=== PATIENT | male | born 1955 | race Caucasian/White ===

== ENCOUNTER 2017-11-01 13:18 | Inpatient (IN) | payer MEDICARE ==
[~2017-11-01] VITALS: Ht 188 cm; Wt 110.0 kg
[~2017-11-01 13:18] MED LIST: 3-IN3MIS; AMLO10 PO; CLOP75 PO; HCTZ25 PO; LISI20 PO; METO50TA PO; PRAV80 PO; PROT40TA PO; RISP50P IM; TAMS.4 PO; WHEEMIS3 XX; [UNRECOGNIZED DRUG - CODE]; [UNRECOGNIZED DRUG - CODE] TOP
[2017-11-01 13:30] VITALS: BP 185/104; PULSE 113; RESP 18; TEMP 99.7; O2SAT 96
[2017-11-01] MEDS ORDERED: METOPROLOL TARTRATE 100 MG TAB PO ONE (13:45)
[2017-11-01] MEDS ORDERED: HYDROCHLOROTHIAZIDE 25 MG TAB PO ONE (13:45)
[2017-11-01 13:47] LABS: AUTOMATED NEUTROPHIL # 3.6 TH/MM3 (1.8-7.7); BASOPHIL # 0.1 TH/MM3 (0-0.2); BASOPHIL % 1.2 % (0.0-2.0); EOSINOPHIL # 0.1 TH/MM3 (0-0.4); EOSINOPHIL % 1.2 % (0.0-4.0); HEMATOCRIT 40.7 % (39.0-51.0); HEMOGLOBIN 13.7 GM/DL (13.0-17.0); LYMPH % 23.9 % (9.0-44.0); LYMPHOCYTE # 1.4 TH/MM3 (1.0-4.8); MEAN CELL VOLUME 81.4 FL (80.0-100.0); MEAN CORPUSCULAR HEMOGLOBIN 27.4 PG (27.0-34.0); MEAN CORPUSCULAR HGB CONC 33.6 % (32.0-36.0); MEAN PLATELET VOLUME 8.3 FL (7.0-11.0); MONO % 10.6 % (0.0-8.0); MONOCYTE # 0.6 TH/MM3 (0-0.9); NEUT % 63.1 % (16.0-70.0); PLATELET COUNT 243 TH/MM3 (150-450); WHITE BLOOD COUNT 5.7 TH/MM3 (4.0-11.0)
--- NOTE | 2017-11-01 13:53 | PD ---
HPI Chief Complaint: Psychiatric Symptoms Time Seen by Provider: 13:33 Travel History International Travel<30 days: No Contact w/Intl Traveler<30days: No Traveled to known affect area: No History of Present Illness HPI 61-year-old male that presents to the ED for evaluation of Pritchett act after apparently patient has been noncompliant with his medications. Patient has a history of CVA and apparently hypertension. He takes 3 different blood pressure medications and per Pritchett act he has been refusing his medications. He also has a history of schizoaffective disorder. He denies any suicidal homicidal ideation. He denies any chest pain or shortness of breath. No headache. Patient is somewhat hard to get a history as he does appear to be possibly slightly psychotic. Patient tells me that he was not given his blood pressure medications and that is why he did not take them. He apparently resides in an [facility]. He denies any medical problems at this time. He denies any cuts. Allergies to penicillin. Has been here before for psychiatric illness but not in any recent time. Patient was Pritchett acted because of his history of CVA and noncompliance with his blood pressure medications. When asked if we give the patient his medications will he take them he states that he will. Symptoms appear to be ongoing for about a month per Pritchett act. PFSH Past Medical History Arthritis: Yes Asthma: Yes Autoimmune Disease: No Anxiety: Yes Depression: No Heart Rhythm Problems: No Cancer: No Cardiovascular Problems: Yes High Cholesterol: Yes Chemotherapy: No Chest Pain: No Congestive Heart Failure: No COPD: Yes (hx copd) Cerebrovascular Accident: Yes (Pt states he had a stroke 2 months ago but didn' t come to the hospital.) Diabetes: Yes (new onset) Patient Takes Glucophage: No Endocrine: No GERD: No Genitourinary: No Hiatal Hernia: No Hypertension: Yes Immune Disorder: No Kidney Stones: No Musculoskeletal: Yes Neurologic: Yes (cva left sided weakness) Psychiatric: Yes (schizophrenic) Reproductive: No Respiratory: Yes Migraines: No Radiation Therapy: No Renal Failure: No Seizures: Yes ([id number]) Sickle Cell Disease: No Sleep Apnea: No Thyroid Disease: No Ulcer: No ?: Not Past Surgical History Abdominal Surgery: No AICD: No Arteriovenous Shunt: No Cardiac Surgery: Yes Ear Surgery: No Endocrine Surgery: No Eye Surgery: Yes (cataracts in 1980s / bilateral eyes) Genitourinary Surgery: No Gynecologic Surgery: No Insulin Pump: No Joint Replacement: No Neurologic Surgery: Yes (right cva) Oral Surgery: Yes (wisdom teeth removed ) Pacemaker: No Thoracic Surgery: No Other Surgery: Yes (neck surgery) Social History Alcohol Use: No Tobacco Use: No Substance Use: No Allergies-Medications (Allergen,Severity, Reaction): Coded Allergies: penicillin G (Unverified Allergy, Severe, 02/21/17) Reported Meds & Prescriptions Reported Meds & Active Scripts Active Review of Systems ROS Limitations: Poor Historian Except as stated in HPI: all other systems reviewed are Neg Physical Exam Exam Limitations: Poor Historian Narrative GENERAL: SKIN: Warm and dry. HEAD: Atraumatic. Normocephalic. EYES: Pupils equal and round. No scleral icterus. No injection or drainage. ENT: No nasal bleeding or discharge. Mucous membranes pink and moist. Tongue is midline. No uvula deviation. NECK: Trachea midline. No JVD. CARDIOVASCULAR: Regular rate and rhythm. No murmurs, S3, S4. RESPIRATORY: No accessory muscle use. Clear to auscultation. Breath sounds equal bilaterally. GASTROINTESTINAL: Abdomen soft, non-tender, nondistended. Hepatic and splenic margins not palpable. MUSCULOSKELETAL: Extremities without clubbing, cyanosis, or edema. No obvious deformities. Full range of motion of the upper and lower extremities bilaterally. 2+ pulses bilaterally. NEUROLOGICAL: Awake and alert. No obvious cranial nerve deficits. Motor grossly within normal limits. Five out of 5 muscle strength in the arms and legs. Normal speech. PSYCHIATRIC: Appropriate mood and affect; insight and judgment normal. Data Data Last Documented VS Vital Signs Date Time Temp Pulse Resp B/P (MAP) Pulse Ox O2 Delivery O2 Flow Rate FiO2 11/01/17 13:30 99.7 113 18 185/104 (131) 96 Room Air Orders Orders Complete Blood Count With Diff (11/01/17 13:33) Comprehensive Metabolic Panel (11/01/17 13:33) Thyroid Stimulating Hormone (11/01/17 13:33) Psych Screen (11/01/17 13:33) Drug Screen, Random Urine (11/01/17 13:33) Alcohol (Ethanol) (11/01/17 13:33) Metoprolol Tartrate (Lopressor) (11/01/17 13:45) Hydrochlorothiazide (Hydrodiuril) (11/01/17 13:45) Labs Laboratory Tests Test 11/01/17 13:30 White Blood Count 5.7 TH/MM3 Red Blood Count 5.00 MIL/MM3 Hemoglobin 13.7 GM/DL Hematocrit 40.7 % Mean Corpuscular Volume 81.4 FL Mean Corpuscular Hemoglobin 27.4 PG Mean Corpuscular Hemoglobin Concent 33.6 % Red Cell Distribution Width 14.0 % Platelet Count 243 TH/MM3 Mean Platelet Volume 8.3 FL Neutrophils (%) (Auto) 63.1 % Lymphocytes (%) (Auto) 23.9 % Monocytes (%) (Auto) 10.6 % Eosinophils (%) (Auto) 1.2 % Basophils (%) (Auto) 1.2 % Neutrophils # (Auto) 3.6 TH/MM3 Lymphocytes # (Auto) 1.4 TH/MM3 Monocytes # (Auto) 0.6 TH/MM3 Eosinophils # (Auto) 0.1 TH/MM3 Basophils # (Auto) 0.1 TH/MM3 CBC Comment DIFF FINAL Differential Comment Blood Urea Nitrogen 10 MG/DL Creatinine 0.98 MG/DL Random Glucose 100 MG/DL Albumin 3.3 GM/DL Calcium Level 9.0 MG/DL Aspartate Amino Transf (AST/SGOT) 24 U/L Sodium Level 137 MEQ/L Potassium Level 3.5 MEQ/L Chloride Level 103 MEQ/L Carbon Dioxide Level 26.7 MEQ/L Anion Gap 7 MEQ/L Estimat Glomerular Filtration Rate 78 ML/MIN Ethyl Alcohol Level LESS THAN 3 MG/DL MDM Medical Decision Making Medical Screen Exam Complete: Yes Emergency Medical Condition: Yes Medical Record Reviewed: Yes Interpretation(s) CBC & BMP Diagram 11/01/17 13:30 Albumin 3.3 L, Calcium Level 9.0, Aspartate Amino Transf (AST/SGOT) 24 Differential Diagnosis Depression versus suicidal ideation versus anxiety versus adjustment disorder versus mood disorder versus bipolar disorder versus schizophrenia versus paranoid disorder versus psychosis versus substance abuse versus alcohol abuse versus alcohol induced psychosis versus homicidality addition versus cutting versus personality disorder versus hypertension Narrative Course 61-year-old male that presents to the ED for evaluation of Pritchett act. Patient was properly examined and was found to have signs and symptoms consistent with psychiatric illness been a significant medical distress. Labs were drawn. Patient was found to be slightly hypertensive here. Patient did state that he will take his medications given here. I given him his metoprolol and HCTZ. Patient will be medically clear. Okay to be seen by psych. Mental health screening was discussed with the patient. Diagnosis Primary Impression: Schizoaffective disorder Qualified Codes: F25.9 - Schizoaffective disorder, unspecified Niall Mancia Nov 01, 2017 13:53
[2017-11-01 14:18] LABS: ALBUMIN 3.3 GM/DL (3.4-5.0); AST (GOT) 24 U/L (15-37); BICARBONATE 26.7 MEQ/L (21.0-32.0); BLOOD UREA NITROGEN 10 MG/DL (7-18); CHLORIDE 103 MEQ/L (98-107); CREATININE 0.98 MG/DL (0.60-1.30); GLOMERULAR FILTRATION RATE 78 ML/MIN (>89); GLUCOSE,RANDOM 100 MG/DL (74-106); SODIUM (NA) 137 MEQ/L (136-145)
[2017-11-01 14:29] LABS: ALKALINE PHOSPHATASE 83 U/L (45-117); ALT (GPT) 24 U/L (12-78); TOTAL BILIRUBIN ADULT 0.4 MG/DL (0.2-1.0); TOTAL PROTEIN 8.3 GM/DL (6.4-8.2)
[2017-11-01 15:32] VITALS: BP 191/109; PULSE 72; RESP 18; TEMP 98.7; O2SAT 97
[2017-11-01 18:00] VITALS: BP 190/90; PULSE 69; RESP 18; TEMP 98.5; O2SAT 98
[2017-11-02 02:13] VITALS: BP 203/98; PULSE 75; RESP 18; TEMP 98.7; O2SAT 97
[2017-11-02 04:26] VITALS: BP 168/104
[2017-11-02 05:41] VITALS: BP 166/92; PULSE 91; RESP 18; TEMP 98.2; O2SAT 97
[2017-11-02 14:05] VITALS: BP 193/101; PULSE 87; RESP 22; TEMP 98.2; O2SAT 95
[2017-11-02 18:28] VITALS: BP 186/117; PULSE 87; RESP 22; TEMP 98.4; O2SAT 97
[2017-11-02] MEDS ORDERED: METOPROLOL TARTRATE 100 MG TAB PO ONE (18:30)
[2017-11-02] MEDS ORDERED: LISINOPRIL 20 MG TAB PO ONE (18:30)
[2017-11-02 21:09] VITALS: BP_SYST 175; BP_SYST 72; BP_DIAS 20; BP_DIAS 99; PULSE 72; RESP 20
[2017-11-03] VITALS (8 sets, daily range): BP systolic 155–170; BP diastolic 78–103; PULSE 66–93; RESP 17–18; TEMP 97.4–98.7; O2SAT 95–98
[2017-11-03] MEDS ORDERED: METOPROLOL TARTRATE 100 MG TAB PO ONE (11:30)
[2017-11-03] MEDS ORDERED: LISINOPRIL 20 MG TAB PO ONE (11:30)
--- NOTE | 2017-11-03 12:17 | PD ---
History of Present Illness Chief Complaint: Psychiatric Symptoms Time Seen by Provider: 11:45 Travel History International Travel<30 Days: No Contact w/Intl Traveler<30days: No Known affected area: No Legal Status Legal Status: Yarely Act Pritchett Act Signed By: Physician Dr Jose Pritchett Act Comment: Patient Yarely Acted by physician at [facility]. History of Present Illness: History of Present Illness HPI 61-year-old, -Congolese, single male, resident of [facility], with history of hypertension, CVA, schizoaffective disorder, bipolar type who presents to the ED for evaluation of Pritchett act initiated by Dr. Decker after apparently patient has been noncompliant with all prescribed medications for the past month. When interviewed the patient states that he has not taken the medications " because they don't give them to me" but that he will take him here while he is in the hospital. EMR is reviewed. Patient was last admitted to [facility] in 2005 and was given a diagnosis of schizoaffective disorder, mixed personality disorder. Current toxicology is negative for any substances of abuse. Patient is seen. He is awake, alert, oriented to person, place, situation, partial to time. He is maintaining basic hygiene. He is cooperative with evaluation. He is extremely difficult to understand as he mumbles, fast rate, and tends to repeat himself. Some echolalia is noted. He does admit to hearing voices that have been telling him not to take his medicine as well as" talking shit". Decreased attention is noted. Patient also reports having rapid thoughts. He denies current suicidal or homicidal ideation, intent or plan. He is judgment is poor as evidenced by refusing to take medications for his hypertension. PFSH Past Medical History Arthritis: Yes Asthma: Yes Autoimmune Disease: No Anxiety: Yes Depression: No Heart Rhythm Problems: No Cancer: No Cardiovascular Problems: Yes High Cholesterol: Yes Chemotherapy: No Chest Pain: No Congestive Heart Failure: No COPD: Yes (hx copd) Cerebrovascular Accident: Yes (Pt states he had a stroke 2 months ago but didn' t come to the hospital.) Diabetes: Yes (new onset) Patient Takes Glucophage: No Endocrine: No GERD: No Genitourinary: No Hiatal Hernia: No Hypertension: Yes Immune Disorder: No Kidney Stones: No Musculoskeletal: Yes Neurologic: Yes (cva left sided weakness) Psychiatric: Yes (schizophrenic) Reproductive: No Respiratory: Yes Migraines: No Radiation Therapy: No Renal Failure: No Seizures: Yes ([id number]) Sickle Cell Disease: No Sleep Apnea: No Thyroid Disease: No Ulcer: No ?: Not Past Surgical History Abdominal Surgery: No AICD: No Arteriovenous Shunt: No Cardiac Surgery: Yes Ear Surgery: No Endocrine Surgery: No Eye Surgery: Yes (cataracts in 1980s / bilateral eyes) Genitourinary Surgery: No Gynecologic Surgery: No Insulin Pump: No Joint Replacement: No Neurologic Surgery: Yes (right cva) Oral Surgery: Yes (wisdom teeth removed ) Pacemaker: No Thoracic Surgery: No Other Surgery: Yes (neck surgery) Psychiatric History Psychiatric History Hx Psychiatric Treatment: Difficult to obtain from patient but records indicate he has been hospitalized here at [facility] in 1997.. His last admission was in 2005 also in context of medication noncompliance. History of Inpatient Treatment: Yes Guns or firearms in home: No Social History Born in [place] and raised in [place]. Has 3 brothers and 4 sisters. Completed a GED. Patient is on disability. As per records he was at one time. He lives at an [facility]. Hx Alcohol Use: No Hx Tobacco Use: No Hx Substance Use: No Family Psychiatric History Unknown Allergies-Medications (Allergen,Severity, Reaction): Coded Allergies: penicillin G (Unverified Allergy, Severe, 02/21/17) Reported Meds & Prescriptions Reported Meds & Active Scripts Active Review of Systems ROS Limitations: Poor Historian Mental Status Examination Appearance: Appropriate Consciousness: Alert Orientation: Person, Place, Date/Time (Partial), Situation Motor Activity: Normal gait Speech: Rapid, Other (Mumbles, echolalia) Language: Perseveration, Echolalia Fund of Knowledge: Inadequate Attention and Concentration: Inadequate Memory: Impaired Mood: Appropriate Affect: Appropriate Thought Process & Associations: Disorganized, Other Thought Content: Hallucinations Hallucination Type: Auditory Delusion Type: None Suicidal Ideation: No Suicidal Plan: No Suicidal Intention: No Homicidal Ideation: No Homicidal Plan: No Homicidal Intention: No Insight: Poor Judgment: Poor MDM Medical Decision Making Medical Record Reviewed: Yes Assessment/Plan 61-year-old, -Congolese, single male, resident of [facility], with history of hypertension, CVA, schizoaffective disorder, bipolar type who presents to the ED for evaluation of Pritchett act initiated by Dr. Decker after apparently patient has been noncompliant with all prescribed medications for the past month. When interviewed the patient states that he has not taken the medications " because they don't give them to me" but that he will take him here while he is in the hospital. Patient admits to auditory hallucinations that tell him to not take his medication. Patient at risk for complications from not following up with his prescribed antihypertensive. Patient will be evaluated by on-call psychiatrist Dr. Guillaume for possible admission to inpatient unit for further evaluation, stabilization, and for medication adjustment. Orders Orders Diet Regular Basic (11/02/17 Dinner) Metoprolol Tartrate (Lopressor) (11/02/17 18:30) Amlodipine (Norvasc) (11/02/17 18:30) Lisinopril (Prinivil) (11/02/17 18:30) Diet Heart Healthy (11/03/17 Breakfast) Diet Diabetic (11/03/17 Lunch) Amlodipine (Norvasc) (11/03/17 11:30) Lisinopril (Prinivil) (11/03/17 11:30) Metoprolol Tartrate (Lopressor) (11/03/17 11:30) Results Vital Signs Date Time Temp Pulse Resp B/P (MAP) Pulse Ox O2 Delivery O2 Flow Rate FiO2 11/03/17 11:23 170/85 (113) 11/03/17 10:00 97.8 93 17 168/103 (124) 95 Room Air 11/03/17 05:37 69 18 158/85 (109) Room Air 11/03/17 02:33 72 18 155/78 (103) Room Air 11/02/17 21:09 72 20 175/99 (124) Room Air 11/02/17 18:28 98.4 87 22 186/117 (140) 97 Room Air 11/02/17 14:05 98.2 87 22 193/101 (131) 95 Room Air Laboratory Tests Test 11/03/17 03:20 Urine Opiates Screen NEG Urine Barbiturates Screen NEG Urine Amphetamines Screen NEG Urine Benzodiazepines Screen NEG Urine Cocaine Screen NEG Urine Cannabinoids Screen NEG Diagnosis Primary Impression: Schizoaffective disorder Problem Qualifiers Primary Impression: Schizoaffective disorder Qualified Codes: F25.9 - Schizoaffective disorder, unspecified Paula Maravilla [facility] Nov 03, 2017 12:17
[2017-11-03] MEDS ORDERED: ACETAMINOPHEN 325 MG TAB PO PRN (15:15)
[2017-11-03] MEDS ORDERED: MAGNESIUM HYDROXIDE SUSP 30 ML CUP PO PRN (15:15)
[2017-11-03] MEDS: NICOTINE 21 MG/24 HR PATCH T-DERMAL SCH (15:15)
[2017-11-03] MEDS ORDERED: LORazepam 0.5 MG TAB PO PRN (15:15)
[2017-11-03] MEDS ORDERED: ALUMINUM/MAGNESIUM/SIMETH 30 ML CUP PO PRN (15:15)
[2017-11-03] MEDS ORDERED: LORazepam 2 MG/ML VIAL IM PRN ×2 (15:15)
[2017-11-03] MEDS ORDERED: LORazepam 1 MG TAB PO PRN (15:15)
--- NOTE | 2017-11-03 15:21 | HHI.HP ---
Provisional Diagnosis Admission Date [place]. Schizoaffective disorder, bipolar type Certification of Person's Competence To Provide Express and Informed Consent I have personally examined Manuelito Shaw , a person being served at [facility] on, Nov 03, 2017 15:15. Express and informed consent means consent voluntarily given in writing, by a competent person, after sufficient explanation and disclosure of the subject matter involved to enable the person to make a knowing and willful decision without any element of force, fraud, deceit, duress, or other form of constraint or coercion. This person is 18 years of age or older, is not now known to be incompetent to consent to treatment with a guardian advocate, and does not have a health care surrogate or proxy currently making medical treatment decisions. I have found this person to be one of the following: [] Competent to provide express and informed consent, as defined above, for voluntary admission to this facility and is competent to provide express and informed consent for treatment. He/she has the consistent capacity to make well reasoned, willful, and knowing decisions concerning his or her medical or mental health treatment. The person fully and consistently understands the purpose of the admission for examination/placement and is fully capable of personally exercising all rights assured [place] [x] Incompetent to provide express and informed consent to voluntary admission, and this is incompetent to provide express and informed consent to treatment. The person must be transferred to involuntary status and a petition for a guardian advocate filed with the Circuit Court. [] Refusing to provide express and informed consent to voluntary admission but is competent to provide express and informed consent for treatment. The person must be discharged or transferred to involuntary status. Form shall be completed within 24 hours of a person's arrival at the receiving facility and filed in the clinical record of each person: 1. Admitted on a voluntary basis 2. Permitted to provide express and informed consent to his/her own treatment 3. Allowed to transfer from involuntary to voluntary status 4. Prior to permitting a person to consent to his or her own treatment after having been previously found incompetent to consent to treatment. History of Present Illness Capacity: Lacks Capacity HPI The patient is 61-year-old, -Niuean, single male, resident of [facility], with history of hypertension, CVA, residual neurological symptoms, expressive aphasia, psychiatric history of schizoaffective disorder, bipolar type, multiple psychiatric hospitalizations, outpatient care by visiting psychiatrist, he is on Risperdal 2 mg twice daily, who presents to the ED for evaluation of Pritchett act initiated by Dr. Decker after apparently patient has been noncompliant with all prescribed medications for the past month. When interviewed the patient states that he has not taken the medications " because they don't give them to me" but that he will take him here while he is in the hospital.EMR is reviewed. Patient was last admitted to [facility] in 2005 and was given a diagnosis of schizoaffective disorder, mixed personality disorder. Current toxicology is negative for any substances of abuse.Patient is seen. He is awake, alert, oriented to person, place, situation , partial to time. He is maintaining basic hygiene. He is cooperative with evaluation. He is extremely difficult to understand due to aphasia, fast rate, and tends to repeat himself. Some echolalia is noted. He does admit to hearing voices that have been telling him not to take his medicine as well as" talking shit". Decreased attention is noted. Patient also reports having rapid thoughts. He denies current suicidal or homicidal ideation, intent or plan. He is judgment is poor as evidenced by refusing to take medications for his hypertension. Review of Systems Constitutional: DENIES: Diaphoretic episodes, Fatigue, Fever, Weight gain, Weight loss, Chills, Dizziness, Change in appetite, Night Sweats Endocrine: DENIES: Heat/cold intolerance, Polydipsia, Polyuria, Polyphagia Eyes: DENIES: Blurred vision, Diplopia, Eye inflammation, Eye pain, Vision loss , Photosensitivity, Double Vision Ears, nose, mouth, throat: DENIES: Tinnitus, Hearing loss, Vertigo, Nasal discharge, Oral lesions, Throat pain, Hoarseness, Ear Pain, Running Nose, Epistaxis, Sinus Pain, Toothache, Odynophagia Respiratory: DENIES: Apneas, Cough, Snoring, Wheezing, Hemoptysis, Sputum production, Shortness of breath Cardiovascular: DENIES: Chest pain, Palpitations, Syncope, Dyspnea on Exertion , PND, Lower Extremity Edema, Orthopnea, Claudication Gastrointestinal: DENIES: Abdominal pain, Black stools, Bloody stools, Constipation, Diarrhea, Nausea, Vomiting, Difficulty Swallowing, Anorexia Genitourinary: DENIES: Sexual dysfunction, Urinary frequency, Urinary incontinence, Urgency, Hematuria, Dysuria, Nocturia, Penile Discharge, Testicular Pain, Testicular Swelling Musculoskeletal: DENIES: Joint pain, Muscle aches, Stiffness, Joint Swelling, Back pain, Neck pain Integumentary: DENIES: Abnormal pigmentation, Nail changes, Pruritus, Rash Hematologic/lymphatic: DENIES: Bruising, Lymphadenopathy Immunologic/allergic: DENIES: Eczema, Urticaria Neurologic: DENIES: Abnormal gait, Headache, Localized weakness, Paresthesias, Seizures, Speech Problems, Tremor, Poor Balance Psychiatric: COMPLAINS OF: Hallucinations, Delusions, DENIES: Anxiety, Confusion, Mood changes, Depression, Agitation, Suicidal Ideation, Homicidal Ideation Past Psych History Violence risk - self (6 mos) Increased Past Family Social History Coded Allergies: penicillin G (Unverified Allergy, Severe, 02/21/17) Discontinued Scripts Lisinopril 20 mg (Prinivil 20 mg) 20 Mg Tab, 40 MG PO DAILY for blood pressure, #60 TAB 1 Refill Prov:[facility] 04/28/15 Pantoprazole Sodium (Protonix) 40 Mg Tabdr, 40 MG PO DAILY for GI ppx, #30 TAB 1 Refill Prov:[facility] 04/28/15 Risperidone (Risperdal Consta) 50 Mg/2 Ml Inj, 50 MG IM Q14D for schizoaffective , #2 INJECTION 1 Refill Prov:[facility]ertic[facility] 04/28/15 Tamsulosin HCl (Tamsulosin HCl) 0.4 Mg Cap, 0.4 MG PO DAILY for urinary retention, #30 CAP 1 Refill Prov:[facility] 04/28/15 Pravastatin Sod (Pravastatin Sodium) 80 Mg Tab, 80 MG PO HS for hyperlipidemia, #30 TAB 1 Refill Prov:[facility] 04/28/15 Hydrodiuril (Hydrodiuril) 25 Mg Tab, 25 MG PO DAILY for blood pressure, #30 TAB 1 Refill Prov:[facility] 04/28/15 Aquaphor (Aquaphor) 50 Applic/50 Gm Oint, 1 APPLIC TOP Q12HR for skin lesions, # 1 TUBE 1 Refill Prov:[facility] 04/28/15 Amlodipine Besylate (Norvasc) 10 Mg Tab, 10 MG PO DAILY for blood pressure, #30 TAB 1 Refill Prov:[facility] 04/28/15 Clopidogrel Bisulfate (Plavix) 75 Mg Tab, 75 MG PO DAILY for anticoagulation, # 30 TAB 1 Refill Prov:Grobstick,[facility] 04/28/15 Metoprolol Tartrate 50 mg (Metoprolol Tartrate 50 mg) 50 Mg Tab, 100 MG PO DAILY for blood pressure., #60 TAB 1 Refill Prov:Grobstick,[facility] 04/28/15 Misc. Devices (Wheelchair Cushion) Cushion Mis, EA, #1 Prov:Grobstick,[facility] 04/27/15 Misc. Devices (3-in-1 Commode) 1 Mis Mis, EA .XX, #1 0 Refills Prov:Grobstick,[facility] 04/27/15 Misc. Devices (Wheelchair) Mis, 1 EA XX, #1 Prov:[facility]robstick,[facility] 04/27/15 Current Medications Medications (Trade) Dose Ordered Sig/Mirtha Route Start Time Stop Time Status Last Admin (risperDAL) 1 mg Q12HR PO 11/03/17 21:00 UNV Family Psych History No family psychiatric history Social History Patient was born and raised in [facility], he lives in [facility], poor family and social support, unemployed, single, supported by [facility] Patient's Strengths (min. 2) Domiciled in a structured environment Physical Exam Vital Signs Vital Signs Date Time Temp Pulse Resp B/P (MAP) Pulse Ox O2 Delivery O2 Flow Rate FiO2 11/03/17 14:48 98.7 66 18 98 Room Air 165/90 (115) Lab Results Test 11/03/17 03:20 Urine Opiates Screen NEG Urine Barbiturates Screen NEG Urine Amphetamines Screen NEG Urine Benzodiazepines Screen NEG Urine Cocaine Screen NEG Urine Cannabinoids Screen NEG Mental Status Examination Appearance: Appropriate Consciousness: Alert Orientation: Person, Place, Date/Time (Partial), Situation Motor Activity: Normal gait Speech: Rapid, Other (Mumbles, echolalia) Language: Perseveration, Echolalia Fund of Knowledge: Inadequate Attention and Concentration: Inadequate Memory: Impaired Mood: Appropriate Affect: Appropriate Thought Process & Associations: Disorganized, Other Thought Content: Hallucinations Hallucination Type: Auditory Delusion Type: None Suicidal Ideation: No Suicidal Plan: No Suicidal Intention: No Homicidal Ideation: No Homicidal Plan: No Homicidal Intention: No Insight: Poor Judgment: Poor Assessment & Plan Problem List: (1) Schizoaffective disorder ICD Codes: F25.9 - Schizoaffective disorder, unspecified Status: Chronic Assessment & Plan: Patient seems to be decompensated of his schizoaffective disorder at this moment. Reports having commanding type auditory hallucinations , not taking his medications, he is in an elevated risk of danger to self and others. Will be admitted in psychiatry to restart his psychotropics. Start Risperdal 1 mg twice daily. 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 Will consult psychiatry for second opinion. Assessment & Plan Estimated LOS: days Problem Qualifiers (1) Schizoaffective disorder: Qualified Codes: F25.9 - Schizoaffective disorder, unspecified Eduin Martinez MD Nov 03, 2017 15:21
--- NOTE | 2017-11-03 18:27 | PD.PSY.CON ---
Provisional Diagnosis Admission Date Nov 03, 2017 at 15:15 Hollis I. 1. Schizoaffective disorder, unspecified type Hollis II. Deferred History of Present Illness Service Psychiatry Consult Requested By Dr. Martinez Reason for Consult Second opinion for involuntary psychiatric hospitalization Primary Care Physician No Primary Care Physician HPI From Dr. Martinez's H&P: The patient is 61-year-old, -[place], single male, resident of [facility], with history of hypertension, CVA, residual neurological symptoms, expressive aphasia, psychiatric history of schizoaffective disorder, bipolar type, multiple psychiatric hospitalizations, outpatient care by visiting psychiatrist, he is on Risperdal 2 mg twice daily, who presents to the ED for evaluation of Pritchett act initiated by Dr. Decker after apparently patient has been noncompliant with all prescribed medications for the past month. When interviewed the patient states that he has not taken the medications " because they don't give them to me" but that he will take him here while he is in the hospital.EMR is reviewed. Patient was last admitted to [facility] in 2005 and was given a diagnosis of schizoaffective disorder, mixed personality disorder. Current toxicology is negative for any substances of abuse.Patient is seen. He is awake, alert, oriented to person, place, situation , partial to time. He is maintaining basic hygiene. He is cooperative with evaluation. He is extremely difficult to understand due to aphasia, fast rate, and tends to repeat himself. Some echolalia is noted. He does admit to hearing voices that have been telling him not to take his medicine as well as" talking shit". Decreased attention is noted. Patient also reports having rapid thoughts. He denies current suicidal or homicidal ideation, intent or plan. He is judgment is poor as evidenced by refusing to take medications for his hypertension. On my examination 11/03: Patient seen and examined. Chart reviewed. Case discussed with nursing staff. Patient tells me that he has not been taking his blood pressure medications because "they have not given them to me." Possibly some paranoia. Denies SI or HI. Denies AVH. No mood symptoms. Thought process tangential. Remainder of the psychiatric ROS is negative. No acute physical complaints. Past psychiatric history: Patient denies a history of psychiatric diagnosis. He denies a history of inpatient or outpatient psychiatric treatment. Family history: Patient denies any family history of mental illness. Chemical dependency history: Patient denies any abuse of drugs or alcohol. Social history: Patient has been residing at his facility for 3 or 4 months. Review of Systems ROS Limitations: Psychotic, Poor Historian Except as stated in HPI: all other systems reviewed are Neg Past Family Social History Coded Allergies: penicillin G (Unverified Allergy, Severe, 02/21/17) Past Medical History See electronic medical record Discontinued Scripts Lisinopril 20 mg (Prinivil 20 mg) 20 Mg Tab, 40 MG PO DAILY for blood pressure, #60 TAB 1 Refill Prov:Marcia DouglassP 04/28/15 Pantoprazole Sodium (Protonix) 40 Mg Tabdr, 40 MG PO DAILY for GI ppx, #30 TAB 1 Refill Prov:NazticMarcia grijalvaP 04/28/15 Risperidone (Risperdal Consta) 50 Mg/2 Ml Inj, 50 MG IM Q14D for schizoaffective , #2 INJECTION 1 Refill Prov:Marcia DouglassP 04/28/15 Tamsulosin HCl (Tamsulosin HCl) 0.4 Mg Cap, 0.4 MG PO DAILY for urinary retention, #30 CAP 1 Refill Prov:Marcia DouglassP 04/28/15 Pravastatin Sod (Pravastatin Sodium) 80 Mg Tab, 80 MG PO HS for hyperlipidemia, #30 TAB 1 Refill Prov:NazticMarcia grijalvaP 04/28/15 Hydrodiuril (Hydrodiuril) 25 Mg Tab, 25 MG PO DAILY for blood pressure, #30 TAB 1 Refill Prov:Marcia DouglassP 04/28/15 Aquaphor (Aquaphor) 50 Applic/50 Gm Oint, 1 APPLIC TOP Q12HR for skin lesions, # 1 TUBE 1 Refill Prov:Marcia DouglassP 04/28/ Amlodipine Besylate (Norvasc) 10 Mg Tab, 10 MG PO DAILY for blood pressure, #30 TAB 1 Refill Prov:GrosawyerticMarcia grijalva MECHANIC 04/28/15 Clopidogrel Bisulfate (Plavix) 75 Mg Tab, 75 MG PO DAILY for anticoagulation, # 30 TAB 1 Refill Prov:NazticMarcia grijalva MECHANIC 04/28/15 Metoprolol Tartrate 50 mg (Metoprolol Tartrate 50 mg) 50 Mg Tab, 100 MG PO DAILY for blood pressure., #60 TAB 1 Refill Prov:GrobstickMarcia MECHANIC 04/28/15 Misc. Devices (Wheelchair Cushion) Cushion Mis, EA, #1 Prov:GrobstickMarcia MECHANIC 04/27/15 Misc. Devices (3-in-1 Commode) 1 Mis Mis, EA .XX, #1 0 Refills Prov:GrobstickMarcia MECHANIC 04/27/15 Misc. Devices (Wheelchair) Mis, 1 EA XX, #1 Prov:GrobstickMarcia MECHANIC 04/27/15 Current Medications Medications (Trade) Dose Ordered Sig/Mirtha Route Start Time Stop Time Status Last Admin (risperDAL) 1 mg Q12HR PO 11/03/17 21:00 (Ativan) 1 mg Q6H PRN PO 11/03/17 15:15 (Ativan Inj) 1 mg Q6H PRN IM 11/03/17 15:15 (Ativan) 0.5 mg Q12H PRN PO 11/03/17 15:15 (Ativan Inj) 0.5 mg Q12H PRN IM 11/03/17 15:15 (Tylenol) 650 mg Q4H PRN PO 11/03/17 15:15 (Milk Of Magnesia Liq) 30 ml DAILY PRN PO 11/03/17 15:15 (Mag-Al Plus Susp Liq) 30 ml Q6H PRN PO 11/03/17 15:15 (Habitrol 21 Mg Patch.24 Hr) 1 patch DAILY T-DERMAL 11/03/17 15:15 Miscellaneous Information 1 DAILY T-DERMAL 11/04/17 09:00 Patient's Strengths (min. 2) In a monitored setting. Verbally fluent. Physical Exam Physical exam completed by ED provider. On my examination today, patient appears to be in no acute physical distress. Oral dyskinesias noted although the patient does wear a denture which may be exaggerating this movement. No other motor abnormalities noted. Labs and vitals reviewed: Vital Signs Vital Signs Date Time Temp Pulse Resp B/P (MAP) Pulse Ox O2 Delivery O2 Flow Rate FiO2 11/03/17 18:23 97.4 77 17 160/99 (119) 98 11/03/17 14:48 Room Air Lab Results Test 11/03/17 03:20 Urine Opiates Screen NEG Urine Barbiturates Screen NEG Urine Amphetamines Screen NEG Urine Benzodiazepines Screen NEG Urine Cocaine Screen NEG Urine Cannabinoids Screen NEG Mental Status Examination Appearance: Appropriate Consciousness: Alert Orientation: Person, Place (At least) Motor Activity: Normal gait Speech: Speech impediment Language: Other (Rambling) Fund of Knowledge: Inadequate Attention and Concentration: Inadequate Memory: Impaired Mood: Appropriate Affect: Appropriate Thought Process & Associations: Tangential Thought Content: Bizarre thinking Hallucination Type: None Delusion Type: Paranoid (Mild) Suicidal Ideation: No Suicidal Plan: No Suicidal Intention: No Homicidal Ideation: No Homicidal Plan: No Homicidal Intention: No Insight: Poor Judgment: Poor Assessment & Plan Problem List: (1) Schizoaffective disorder ICD Codes: F25.9 - Schizoaffective disorder, unspecified Status: Chronic Assessment & Plan Given the circumstances of the patient's presentation here and his presentation on my examination today, I concur with Dr. Martinez that the patient meets criteria for involuntary psychiatric hospitalization. In particular, there is concern for self-care deficit secondary to mental illness as defined under Pritchett act. I have completed the second opinion paperwork. Further care as per Dr. Martinez. Thank you very much for this consultation. Signing off. Problem Qualifiers (1) Schizoaffective disorder: Qualified Codes: F25.9 - Schizoaffective disorder, unspecified Dong Wood MD Nov 03, 2017 18:27
[2017-11-03] MEDS: risperiDONE 1 MG TAB PO SCH (21:06)
[2017-11-04 05:46] VITALS: BP 138/72; PULSE 97; RESP 18; TEMP 98.2; O2SAT 97
[2017-11-04 08:38] LABS: BICARBONATE 26.2 MEQ/L (21.0-32.0); BLOOD UREA NITROGEN 14 MG/DL (7-18); CALCIUM 9.3 MG/DL (8.5-10.1); CHLORIDE 101 MEQ/L (98-107); CREATININE 1.22 MG/DL (0.60-1.30); GLOMERULAR FILTRATION RATE 60 ML/MIN (>89); GLUCOSE,RANDOM 108 MG/DL (74-106); SODIUM (NA) 137 MEQ/L (136-145)
[2017-11-04 08:39] LABS: CHOLESTEROL 178 MG/DL (120-200); TRIGLYCERIDES 95 MG/DL (42-150)
[2017-11-04 08:41] LABS: CHOLESTEROL/ HDL RATIO 3.57 RATIO; HDL CHOLESTEROL 49.8 MG/DL (40.0-60.0); LDL CHOLESTEROL 109 MG/DL (0-99)
[2017-11-04] MEDS: NICOTINE 21 MG/24 HR PATCH T-DERMAL SCH (09:00)
[2017-11-04] MEDS: REMOVE OLD PATCH T-DERMAL SCH (09:00)
[2017-11-04] MEDS: risperiDONE 1 MG TAB PO SCH ×2 (09:09→20:42)
[2017-11-04 10:39] LABS: HEMOGLOBIN A1C 5.3 % (4.3-6.0)
--- NOTE | 2017-11-04 11:40 | HHI.PYPN ---
Subjective Remarks Reviewed electronic medical record discussed case with staff. Follow-up was performed in the hallway with nurse present. Obtained patient signature on his consent forms. Staff reports that patient has been compliant with medications today. His mood was good his affect is euthymic. Speech makes him difficult to understand however he did answer affirmatively that he had been outside today and seemed to have enjoyed himself. Mental Status Examination Appearance: Appropriate Consciousness: Alert Orientation: Person, Place, Date/Time (Partial), Situation Motor Activity: Normal gait Speech: Rapid, Other (Mumbles, echolalia) Language: Perseveration, Echolalia Fund of Knowledge: Inadequate Attention and Concentration: Inadequate Memory: Impaired Mood: Appropriate Affect: Appropriate Thought Process & Associations: Disorganized, Other Thought Content: Hallucinations Hallucination Type: Auditory Delusion Type: None Suicidal Ideation: No Suicidal Plan: No Suicidal Intention: No Homicidal Ideation: No Homicidal Plan: No Homicidal Intention: No Insight: Poor Judgment: Poor Results Labs Test 11/04/17 07:57 Blood Urea Nitrogen 14 MG/DL Creatinine 1.22 MG/DL Random Glucose 108 MG/DL Calcium Level 9.3 MG/DL Sodium Level 137 MEQ/L Potassium Level 3.4 MEQ/L Chloride Level 101 MEQ/L Carbon Dioxide Level 26.2 MEQ/L Anion Gap 10 MEQ/L Estimat Glomerular Filtration Rate 60 ML/MIN Hemoglobin A1c 5.3 % Triglycerides Level 95 MG/DL Cholesterol Level 178 MG/DL LDL Cholesterol 109 MG/DL HDL Cholesterol 49.8 MG/DL Cholesterol/HDL Ratio 3.57 RATIO Vitals/IOs Vital Signs Date Time Temp Pulse Resp B/P (MAP) Pulse Ox O2 Delivery O2 Flow Rate FiO2 11/04/17 05:46 98.2 97 18 138/72 (94) 97 11/03/17 14:48 Room Air Intake and Output 11/04/17 11/04/17 11/05/17 08:00 16:00 00:00 Intake Total 480 ml Balance 480 ml Assessment & Plan Problem List: (1) Schizoaffective disorder ICD Codes: F25.9 - Schizoaffective disorder, unspecified Status: Chronic Assessment & Plan Estimated LOS: Continue with treatment as ordered. Discharge planning is in progress. Days Justification for Cont. Inpt. Moving this patient to a lower level of care would likely result in decompensation. Patient lacks capacity for self-care at this time. Problem Qualifiers (1) Schizoaffective disorder: Qualified Codes: F25.9 - Schizoaffective disorder, unspecified Denisse Watkins Nov 04, 2017 11:40
[2017-11-04 18:06] VITALS: BP 175/79; PULSE 106; RESP 18; TEMP 98.2; O2SAT 99
[2017-11-04 18:42] VITALS: BP 165/90; PULSE 92
[2017-11-05 05:36] VITALS: BP 129/76; PULSE 101; RESP 16; TEMP 98; O2SAT 99
[2017-11-05] MEDS: NICOTINE 21 MG/24 HR PATCH T-DERMAL SCH (08:45)
[2017-11-05] MEDS: REMOVE OLD PATCH T-DERMAL SCH (08:45)
[2017-11-05] MEDS: risperiDONE 1 MG TAB PO SCH ×2 (08:45→21:26)
--- NOTE | 2017-11-05 13:02 | HHI.PYPN ---
Subjective Remarks Reviewed electronic medical record discussed case with staff. Follow-up was conducted in patient's room with nurse present. Patient was found lying in his bed awake, alert, and oriented to self and place at least. Patient states that he sleeping well and his appetite is been good he reports no side effects from medication. Mental Status Examination Appearance: Appropriate Consciousness: Alert Orientation: Person, Place, Date/Time (Partial), Situation Motor Activity: Normal gait Speech: Rapid, Other (Mumbles, echolalia) Language: Perseveration, Echolalia Fund of Knowledge: Inadequate Attention and Concentration: Inadequate Memory: Impaired Mood: Appropriate Affect: Appropriate Thought Process & Associations: Disorganized, Other Thought Content: Hallucinations Hallucination Type: Auditory Delusion Type: None Suicidal Ideation: No Suicidal Plan: No Suicidal Intention: No Homicidal Ideation: No Homicidal Plan: No Homicidal Intention: No Insight: Poor Judgment: Poor Results Vitals/IOs Vital Signs Date Time Temp Pulse Resp B/P (MAP) Pulse Ox O2 Delivery O2 Flow Rate FiO2 11/05/17 05:36 98.0 101 16 129/76 (93) 99 11/03/17 14:48 Room Air Intake and Output 11/05/17 11/05/17 11/05/17 07:59 15:59 23:59 Intake Total 360 ml Balance 360 ml Assessment & Plan Problem List: (1) Schizoaffective disorder ICD Codes: F25.9 - Schizoaffective disorder, unspecified Status: Chronic Assessment & Plan Estimated LOS: Continue with treatment plan as ordered. Attending psychiatrist will reevaluate tomorrow. Days Justification for Cont. Inpt. Moving this patient to a lower level of care would likely result in decompensation. Problem Qualifiers (1) Schizoaffective disorder: Qualified Codes: F25.9 - Schizoaffective disorder, unspecified Denisse Watkins Nov 05, 2017 13:02
[2017-11-05 18:02] VITALS: BP_SYST 173; BP_SYST 178; BP_DIAS 95; BP_DIAS 99; PULSE 88; RESP 16; TEMP 98.6; O2SAT 99
[2017-11-06 05:32] VITALS: BP 143/85; PULSE 98; RESP 14; TEMP 98.2; O2SAT 98
[2017-11-06] MEDS: risperiDONE 1 MG TAB PO SCH ×2 (08:29→20:22)
[2017-11-06] MEDS: NICOTINE 21 MG/24 HR PATCH T-DERMAL SCH (09:00)
[2017-11-06] MEDS: REMOVE OLD PATCH T-DERMAL SCH (09:00)
[2017-11-06] MEDS ORDERED: LISINOPRIL 20 MG TAB PO SCH (09:00)
--- NOTE | 2017-11-06 10:51 | HHI.PYPN ---
Subjective Remarks Patient seen and examined with nurse. Chart reviewed. Case discussed with nursing staff. Per nursing, patient is responding to internal stimuli but denying auditory hallucinations. Patient has been medication compliant and no behavioral problem on the unit. On my examination today, the patient denies AVH. He does not appear internally stimulated at this time. He denies any SI or HI. No side effects from medications. No physical complaints. Review of Systems Except as stated in HPI: all other systems reviewed are Neg Mental Status Examination Appearance: Appropriate Consciousness: Alert Orientation: Person, Place (At least) Motor Activity: Other (Mild oral dyskinesias, although this may be related to poorly fitting dentures. No other motor abnormalities noted.) Speech: Speech impediment Language: Adequate Fund of Knowledge: Inadequate Attention and Concentration: Inadequate Memory: Impaired Mood: Appropriate Affect: Appropriate Thought Process & Associations: Circumstantial Thought Content: Appropriate Hallucination Type: None Delusion Type: None Suicidal Ideation: No Suicidal Plan: No Suicidal Intention: No Homicidal Ideation: No Homicidal Plan: No Homicidal Intention: No Insight: Poor Judgment: Poor Results Labs Labs reviewed. Vitals/IOs Vital Signs Date Time Temp Pulse Resp B/P (MAP) Pulse Ox O2 Delivery O2 Flow Rate FiO2 11/06/17 05:32 98.2 98 14 143/85 (104) 98 11/03/17 14:48 Room Air Assessment & Plan Problem List: (1) Schizoaffective disorder ICD Codes: F25.9 - Schizoaffective disorder, unspecified Status: Chronic Assessment & Plan Titrate Risperdal to 1.5mg BID to target residual psychotic symptoms. Consult hospitalist for medical management. Continue to monitor on the inpatient unit. Continue other medications and care as ordered. Justification for Cont. Inpt. Med changes. Discharge Planning Possible discharge tomorrow Problem Qualifiers (1) Schizoaffective disorder: Qualified Codes: F25.9 - Schizoaffective disorder, unspecified Dong Wood MD Nov 06, 2017 10:51
--- NOTE | 2017-11-06 12:42 | PD.CONS ---
[facility] By Primary Care Physician No Primary Care Physician Diagnoses: Past Family Social History Allergies: Coded Allergies: penicillin G (Unverified Allergy, Severe, 02/21/17) Physical Exam Vital Signs Vital Signs Date Time Temp Pulse Resp B/P (MAP) Pulse Ox O2 Delivery O2 Flow Rate FiO2 11/06/17 05:32 98.2 98 14 143/85 (104) 98 11/05/17 18:02 98.6 88 16 173/99 (123) 99 178/95 (122) Physical Exam GENERAL: This is a well-nourished, well-developed patient, in no apparent distress. SKIN: No rashes, ecchymoses or lesions. Cool and dry. HEAD: Atraumatic. Normocephalic. No temporal or scalp tenderness. EYES: Pupils equal round and reactive. Extraocular motions intact. No scleral icterus. No injection or drainage. ENT: Nose without bleeding, purulent drainage or septal hematoma. Throat without erythema, tonsillar hypertrophy or exudate. Uvula midline. Airway patent. NECK: Trachea midline. No JVD or lymphadenopathy. Supple, nontender, no meningeal signs. CARDIOVASCULAR: Regular rate and rhythm without murmurs, gallops, or rubs. RESPIRATORY: Clear to auscultation. Breath sounds equal bilaterally. No wheezes , rales, or rhonchi. GASTROINTESTINAL: Abdomen soft, non-tender, nondistended. No hepato-splenomegaly , or palpable masses. No guarding. MUSCULOSKELETAL: Extremities without clubbing, cyanosis, or edema. No joint tenderness, effusion, or edema noted. No calf tenderness. Negative Homans sign bilaterally. NEUROLOGICAL: Awake and alert. Cranial nerves II through XII intact. Motor and sensory grossly within normal limits. Five out of 5 muscle strength in all muscle groups. Normal speech. Result Diagram: 11/04/17 0757 Camila Wheeler Nov 06, 2017 12:42
[2017-11-06] MEDS ORDERED: cloNIDine HCL 0.1 MG TAB PO PRN (12:45)
--- NOTE | 2017-11-06 12:54 | PD.CONS ---
[facility] Reason for Consult Evaluate and manage hypertension Primary Care Physician No Primary Care Physician Diagnoses: History of Present Illness This is a 61-year-old male who is under the care of Dr. Wood for schizoaffective disorder. I have been consulted by him to evaluate and manage hypertension. Patient states he has hypertension not on medications. He denies headache, dizziness, chest pain and shortness of breath. EMR review shows BP as high as 173/99 with a heart rate in the high 90s. He received lisinopril 20 m p.o. 1 earlier. He does not have chest x-ray, EKG and urinalysis on record. He also confirms history of hyperlipidemia and seizure. Denies history of CVA though he had MRI in the past which showed remote infarcts. Speech is not clear because of ill fitting dentures. He does not have any residual deficits. All other systems reviewed negative. Review of Systems Except as stated in HPI: all other systems reviewed are Neg Past Family Social History Allergies: Coded Allergies: penicillin G (Unverified Allergy, Severe, 02/21/17) Past Medical History As previously mentioned Past Surgical History Neck surgery Reported Medications None prior to admission Family History Hypertension Social History Does not smoke or drink Physical Exam Vital Signs Vital Signs Date Time Temp Pulse Resp B/P (MAP) Pulse Ox O2 Delivery O2 Flow Rate FiO2 11/06/17 05:32 98.2 98 14 143/85 (104) 98 11/05/17 18:02 98.6 88 16 173/99 (123) 99 178/95 (122) Physical Exam GENERAL: This is a well-nourished, well-developed patient, in no apparent distress. SKIN: No rashes, ecchymoses or lesions. Cool and dry. HEAD: Atraumatic. Normocephalic. No temporal or scalp tenderness. EYES: Pupils equal round and reactive. Extraocular motions intact. No scleral icterus. No injection or drainage. ENT: Nose without bleeding, purulent drainage or septal hematoma. Throat without erythema, tonsillar hypertrophy or exudate. Uvula midline. Airway patent. NECK: Trachea midline. No JVD or lymphadenopathy. Supple, nontender, no meningeal signs. CARDIOVASCULAR: Regular rate and rhythm without murmurs, gallops, or rubs. RESPIRATORY: Clear to auscultation. Breath sounds equal bilaterally. No wheezes , rales, or rhonchi. GASTROINTESTINAL: Abdomen soft, non-tender, nondistended. No guarding. MUSCULOSKELETAL: Extremities without clubbing, cyanosis, or edema. No joint tenderness, effusion, or edema noted. No calf tenderness. Negative Homans sign bilaterally. NEUROLOGICAL: Awake and alert. Cranial nerves II through XII intact. Motor and sensory grossly within normal limits. Five out of 5 muscle strength in all muscle groups. Speech is clear secondary to ill fitting dentures Result Diagram: 11/04/17 0757 Assessment and Plan Assessment and Plan This is a 61-year-old male who is under the care of Dr. Wood for schizoaffective disorder. I have been consulted by him to evaluate and manage hypertension. Patient states he has hypertension not on medications. He denies headache, dizziness, chest pain and shortness of breath. EMR review shows BP as high as 173/99 with a heart rate in the high 90s. He received lisinopril 20 m p.o. 1 earlier. Will switch to Lopressor 12.5 minutes twice a day with as needed clonidine. Obtain chest x-ray, EKG and urinalysis. Heart healthy diet. Multiple medical conditions of CVA, hyperlipidemia and seizure. Risk factor modification. A1c 5.3. Heart healthy diet. Seizure precautions. He should be on statin and antiplatelets. Patient agrees to be on Lipitor and aspirin. Goal of less than 70 LDL DVT prophylaxis, patient ambulatory Discussed Condition With Patient Jamarcus Victor MD Nov 06, 2017 12:54
[2017-11-06 17:58] VITALS: BP 138/72; PULSE 90; RESP 16; TEMP 98; O2SAT 99
[2017-11-06] MEDS ORDERED: METO100T PO (18:49)
[2017-11-06] MEDS ORDERED: LINA290C PO (18:49)
--- NOTE | 2017-11-06 20:17 | EKG ---
Date Performed: 11/06/2017 Time Performed: 13:07:17 PTAGE: 61 years EKG: Since the PREVIOUS TRACING , no significant change noted Sinus rhythm POSSIBLE LEFT ATRIAL ENLARGEMENT BORDERLINE ECG INTERPRETATION BASED ON A DEFAULT AGE OF 40 YEARS AR EVIOUS TRACIN01/12/1998 11.11 DOCTOR: Ike Shea Interpretating Date/Time 11/06/2017 20:15:56
[2017-11-06] MEDS: ATORVASTATIN 20 MG TAB PO SCH (20:22)
[2017-11-06] MEDS: METOPROLOL TARTRATE 25 MG TAB PO SCH (20:22)
--- NOTE | 2017-11-06 21:30 | RADRPT ---
EXAM DATE/TIME: 11/06/2017 20:26 [facility] COMPARISON: No previous studies available for comparison. INDICATIONS : Chest pain. MEDICAL HISTORY : Hypertension. SURGICAL HISTORY : None. ENCOUNTER: Initial ACUITY: 1 day PAIN SCORE: Non-responsive. LOCATION: Bilateral chest FINDINGS: A single view of the chest demonstrates the lungs to be symmetrically aerated without evidence of mas s, infiltrate or effusion. Minimal basilar atelectasis. The cardiomediastinal contours are unremarka ble. Osseous structures are intact. CONCLUSION: 1. Minimal basilar atelectasis. No consolidation or effusion. Jose Carlos Velasquez MD on November 06, 2017 at 21:27 Board Certified Radiologist. This report was verified electronically.
[2017-11-07 05:35] VITALS: BP 181/91; PULSE 75; RESP 16; TEMP 98.2; O2SAT 99
[2017-11-07 06:31] VITALS: BP 134/81; PULSE 84
[2017-11-07] MEDS: METOPROLOL TARTRATE 25 MG TAB PO SCH ×2 (08:33→20:45)
[2017-11-07] MEDS: risperiDONE 1 MG TAB PO SCH ×2 (08:34→20:45)
[2017-11-07] MEDS: ASPIRIN EC 81 MG TABEC PO SCH (08:34)
[2017-11-07] MEDS: REMOVE OLD PATCH T-DERMAL SCH (08:41)
[2017-11-07] MEDS: NICOTINE 21 MG/24 HR PATCH T-DERMAL SCH (09:00)
--- NOTE | 2017-11-07 12:20 | HHI.PYPN ---
Subjective Remarks Patient seen and examined with nurse. Chart reviewed. Case discussed with nursing staff who reports patient is medication compliant, ate breakfast and showered. Case discussed in treatment team. On my examination today, patient is calm and cooperative. He denies any SI or HI. Denies AVH. Denies CAH. Mood is "alright." Denies side effects from medications. No physical complaints. Review of Systems Except as stated in HPI: all other systems reviewed are Neg Mental Status Examination Appearance: Appropriate Consciousness: Alert Orientation: Person, Place (At least) Motor Activity: Other (No new motor abnormalities noted) Speech: Speech impediment Language: Other (Rambling) Fund of Knowledge: Inadequate Attention and Concentration: Inadequate Memory: Impaired Mood: Appropriate Affect: Appropriate, Euthymic Thought Process & Associations: Circumstantial Thought Content: Appropriate Hallucination Type: None Delusion Type: None Suicidal Ideation: No Suicidal Plan: No Suicidal Intention: No Homicidal Ideation: No Homicidal Plan: No Homicidal Intention: No Insight: Poor Judgment: Poor Results Labs Labs reviewed. No new labs. Urinalysis ordered by hospitalist listed as "in process." Vitals/IOs Vital Signs Date Time Temp Pulse Resp B/P (MAP) Pulse Ox O2 Delivery O2 Flow Rate FiO2 11/07/17 06:31 84 134/81 (98) 11/07/17 05:35 98.2 16 99 11/03/17 14:48 Room Air Intake and Output 11/07/17 11/07/17 11/08/17 08:00 16:00 00:00 Intake Total 480 ml Balance 480 ml Assessment & Plan Problem List: (1) Schizoaffective disorder ICD Codes: F25.9 - Schizoaffective disorder, unspecified Status: Chronic Assessment & Plan Continue Risperdal as ordered. Continue to monitor on the inpatient unit. Hospitalist input noted and appreciated. Continue other medications and care as ordered. Justification for Cont. Inpt. Complicating conditions/awaiting medical clearance Discharge Planning Discharge back to facility once medically cleared, most likely tomorrow Problem Qualifiers (1) Schizoaffective disorder: Qualified Codes: F25.9 - Schizoaffective disorder, unspecified Dong Wood MD November 07, 2017 12:20
--- NOTE | 2017-11-07 12:38 | HHI.PR ---
Subjective Remarks Follow-up for HTN, history of CVA, HLD, psoriasis, and schizoaffective disorder. Patient seen and examined in bed in no acute distress. He reports he is doing well and denies any fevers, chills, nausea, vomiting, diarrhea, headaches, shortness of breath, cough or chest pain. Reports that he was eating in the day room for breakfast and lunch. Nurse does not report any acute concerns. Objective Vitals Vital Signs Date Time Temp Pulse Resp B/P (MAP) Pulse Ox O2 Delivery O2 Flow Rate FiO2 11/07/17 06:31 84 134/81 (98) 11/07/17 05:35 98.2 75 16 181/91 (121) 99 11/06/17 17:58 98.0 90 16 138/72 (94) 99 I/O 11/06/17 11/06/17 11/06/17 11/07/17 11/07/17 11/07/17 07:00 15:00 23:00 07:00 15:00 23:00 Intake Total 960 ml Balance 960 ml Intake Oral 960 ml Result Diagram: 11/04/17 0757 Imaging Last Impressions Chest X-Ray 11/06/17 0000 Signed Impressions: Service Date/Time: Monday, November 06, 2017 20:26 - CONCLUSION: 1. Minimal basilar atelectasis. No consolidation or effusion. Jose Carlos Velasquez MD Objective Remarks GENERAL: Well-developed obese -[place] male resting in bed in no acute distress. SKIN: Cool and dry. Noted dry plaques on face and bilateral arms. EYES: Pupils equal round and reactive. ENT: Nose without bleeding, airway patent. NECK: Trachea midline. No JVD CARDIOVASCULAR: Regular rate and rhythm without murmurs, gallops, or rubs. RESPIRATORY: Clear to auscultation. Breath sounds equal bilaterally. No wheezes , rales, or rhonchi. GASTROINTESTINAL: Abdomen soft, non-tender, nondistended. No guarding. MUSCULOSKELETAL: Extremities without clubbing, cyanosis, or edema. No joint tenderness, effusion, or edema noted. NEUROLOGICAL: Awake and alert, cranial nerves grossly intact. Moving bilateral upper and lower extremities spontaneously. Speech is clear with some slurring secondary to ill fitting dentures A/P Assessment and Plan 61-year-old male with past medical history significant for HTN, CVA, psoriasis, and schizophrenia currently in inpatient psychiatry unit, [facility] consulted to assist with medical management. Schizophrenia disorder -Treatment plan per psychiatry, greatly appreciated Hypertension, controlled HLD -Continue metoprolol 12.5 mg twice daily -Blood pressure and heart rate this morning stable -Chest x-ray completed on 11/06 reviewed, minimal basilar atelectasis with no consolidation or effusion. Patient was reminded to get up out of bed for all meals as well as deep breathing. -EKG completed on 11/06 with sinus rhythm, no significant change compared to prior EKG per report. Hx CVA -Continue risk modifications. Continue low-dose aspirin and Lipitor as well as BP control Psoriasis -Eucerin cream twice a day to areas of dry skin or psoriatic plaques. DVT prophylaxis-ambulation Discussed with patient and nurse. [facility] will sign off, please reconsult if needed. Camila Wheeler November 07, 2017 12:38
[2017-11-07 18:16] VITALS: BP 171/83; PULSE 71; RESP 17; TEMP 98.5; O2SAT 100
[2017-11-07] MEDS: ATORVASTATIN 20 MG TAB PO SCH (20:44)
[2017-11-07] MEDS: EUCERIN CREAM 120 GM JAR TOPICAL SCH (20:46)
[2017-11-08 06:09] VITALS: BP 169/79; PULSE 72; RESP 18; TEMP 98.5; O2SAT 97
[2017-11-08] MEDS: REMOVE OLD PATCH T-DERMAL SCH (09:00)
[2017-11-08] MEDS: NICOTINE 21 MG/24 HR PATCH T-DERMAL SCH (09:00)
[2017-11-08] MEDS ORDERED: ECASA81 PO (09:40)
[2017-11-08] MEDS ORDERED: Eucerin Cream TOPICAL (09:40)
[2017-11-08] MEDS ORDERED: RISP1 PO (09:40)
[2017-11-08] MEDS ORDERED: METO25TA3 PO (09:40)
[2017-11-08] MEDS ORDERED: ATOR20TA15 PO (09:40)
--- NOTE | 2017-11-08 09:40 | HHI.DS ---
Psychiatry Discharge Summary Inpatient Psychiatric care?: Yes Advance Directive: No Reason Not Provided: education provided Mental Health AdvanceDirective: No Health Care Proxy: No Admission Admission Date Nov 03, 2017 at 15:15 Admission Diagnosis: (1) Schizoaffective disorder ICD Code: F25.9 - Schizoaffective disorder, unspecified Brief History The patient is 61-year-old, -[place], single male, resident of [facility], with history of hypertension, CVA, residual neurological symptoms, expressive aphasia, psychiatric history of schizoaffective disorder, bipolar type, multiple psychiatric hospitalizations, outpatient care by visiting psychiatrist, he is on Risperdal 2 mg twice daily, who presents to the ED for evaluation of Pritchett act initiated by Dr. Decker after apparently patient has been noncompliant with all prescribed medications for the past month. When interviewed the patient states that he has not taken the medications " because they don't give them to me" but that he will take him here while he is in the hospital.EMR is reviewed. Patient was last admitted to [facility] in 2005 and was given a diagnosis of schizoaffective disorder, mixed personality disorder. Current toxicology is negative for any substances of abuse.Patient is seen. He is awake, alert, oriented to person, place, situation , partial to time. He is maintaining basic hygiene. He is cooperative with evaluation. He is extremely difficult to understand due to aphasia, fast rate, and tends to repeat himself. Some echolalia is noted. He does admit to hearing voices that have been telling him not to take his medicine as well as" talking shit". Decreased attention is noted. Patient also reports having rapid thoughts. He denies current suicidal or homicidal ideation, intent or plan. He is judgment is poor as evidenced by refusing to take medications for his hypertension. Tobacco Use In Past 30 Days: No Tobacco Past 30 Days Alcohol Use: Never Hospital Course Patient was admitted to a locked, inpatient psychiatric unit. A general medical consultation was obtained and the patient was medically cleared prior to discharge. Appropriate precautions were in place throughout patient's hospital stay. Patient was seen and examined on the unit by psychiatry and also visited by counselor. Psychotropic medications were adjusted. Patient had improvement in presenting psychiatric symptomatology during the course of his hospital stay. There was no evidence of any suicidality or homicidality on the inpatient unit. The patient was medication compliant and remained in behavioral control. On the day of discharge: Patient seen and examined. Chart reviewed. Case discussed with nursing staff. No behavioral issues noted overnight. On my examination today, the patient is in good spirits. He denies any suicidal or homicidal ideation, intent or plan and contracts for safety. I can elicit no depressive or hypomanic/manic symptoms. He denies any audiovisual hallucinations. I can elicit no delusional beliefs. He denies side effects from medications. He has no physical complaints. Suicide and violence risk assessment on day of discharge both suggest lower imminent risk, and the patient's level of function is adequate for outpatient care. Patient has maximized benefit from this inpatient psychiatric hospital stay and will be discharged back to facility today with psychiatric follow-up as arranged by counselor. Patient is also to follow up with primary care. I have counseled the patient to return to the psychiatric emergency room for any concerning psychiatric symptoms as part of a general safety plan. Results Blood Pressure 169 / 79 Vital Signs Date Time Temp Pulse Resp B/P (MAP) Pulse Ox O2 Delivery O2 Flow Rate FiO2 11/08/17 06:09 98.5 72 18 169/79 (109) 97 Laboratory Results Test 11/04/17 07:57 Cholesterol Level 178 MG/DL (120-200) HDL Cholesterol 49.8 MG/DL (40.0-60.0) Hemoglobin A1c 5.3 % (4.3-6.0) LDL Cholesterol 109 MG/DL (0-99) Triglycerides Level 95 MG/DL (42-150) Summary of Procedures None done Imaging Last Impressions Chest X-Ray 11/06/17 0000 Signed Impressions: Service Date/Time: Monday, November 06, 2017 20:26 - CONCLUSION: 1. Minimal basilar atelectasis. No consolidation or effusion. Jose Carlos Velasquez MD Pending results at discharge: No Medications # of Antipsychotic meds at D/C: 1 Approp Antipsych med options 1 - Minimum of three failed multiple trials of monotherapy. 2 - Documented plan to taper to monotherapy due to previous use of multiple meds OR cross-taper in progress at D/C. 3 - Documentation of augmentation of Clozapine. 4 - Justification other than those listed in allowable values 1-3, document here : Discharge Discharge Date: November 08, 2017 Discharge Diagnosis: (1) Schizoaffective disorder Diagnosis: Principal (Stabilized) ICD Code: F25.9 - Schizoaffective disorder, unspecified Status: Chronic Pt Condition on Discharge: Stable Discharge Disposition: ACLF/POP Discharge Instructions Diet Instructions: Heart Healthy Diet Activities you can perform: Weight Bearing as James Scheduled Appointment: Kelvin Yi Appointment Date: November 07, 2017 Appointment Time: 8:00-3:00 New Orders: BASIC METABOLIC PROF - 1 Week New Medications: Aspirin DR (Aspirin DR) 81 Mg Tabdr 81 MG PO DAILY for Health for 15 Days, #15 TAB 1 Refill Atorvastatin (Atorvastatin) 20 Mg Tab 20 MG PO HS for Cholesterol Management for 15 Days, TAB 1 Refill Metoprolol Tartrate (Metoprolol Tartrate) 25 Mg Tab 12.5 MG PO Q12HR for Blood Pressure Management for 15 Days, TAB 1 Refill Risperidone (Risperdal) 1 Mg Tab 1.5 MG PO Q12HR for Mental Health for 15 Days, TAB 1 Refill [Eucerin Cream] () 120 APPLIC/120 GM CR 1 APPLIC TOPICAL BID for Health for 15 Days, 1 Refill Continued Medications: Linaclotide (Linzess) 290 Mcg Cap 290 MCG PO DAILY, CAP 0 Refills Discontinued Medications: Metoprolol Tartrate (Metoprolol Tartrate) 100 Mg Tab 100 MG PO BID, #60 TAB 0 Refills Discharge Time <= 30 minutes Mental Status Examination Appearance: Appropriate Consciousness: Alert Orientation: Person, Place (At least) Motor Activity: Other (No motoric abnormalities noted) Speech: Speech impediment Language: Other (Rambling) Fund of Knowledge: Inadequate Attention and Concentration: Inadequate Memory: Impaired Mood: Appropriate, Good Affect: Appropriate, Euthymic Thought Process & Associations: Circumstantial Thought Content: Appropriate Hallucination Type: None Delusion Type: None Suicidal Ideation: No Suicidal Plan: No Suicidal Intention: No Homicidal Ideation: No Homicidal Plan: No Homicidal Intention: No Insight: Poor (Chronic condition) Judgment: Poor (Chronic condition) Discharge/Advance Care Plan Health Problems: (1) Schizoaffective disorder Goals to promote your health * To prevent worsening of your condition and complications * To maintain your health at the optimal level Directions to meet your goals Take your medications as prescribed Follow your dietary instruction Follow activity as directed Keep your appointments as scheduled Take your immunizations and boosters as scheduled If your symptoms worsen call your PCP, if no PCP go to Urgent Care Center or Emergency Room For 30/01 questions related to your inpatient stay or results of tests pending at discharge, please contact Dr. Dong Wood at Smoking is Dangerous to Your Health. Avoid second hand smoking Problem Qualifiers (1) Schizoaffective disorder: Qualified Codes: F25.0 - Schizoaffective disorder, bipolar type Dong Wood MD November 08, 2017 09:40
[2017-11-08] MEDS: risperiDONE 1 MG TAB PO SCH (09:54)
[2017-11-08] MEDS: ASPIRIN EC 81 MG TABEC PO SCH (09:54)
[2017-11-08] MEDS: EUCERIN CREAM 120 GM JAR TOPICAL SCH (09:56)
[2017-11-08] MEDS: METOPROLOL TARTRATE 25 MG TAB PO SCH (09:56)
--- NOTE | 2017-11-08 16:23 | PD.TTN ---
Patient Problems 1. Discharge planning 2. Medication compliance 3. Knowledge deficit 4. Lack of coping skills Progress Toward Goals Provider Present: Dr. Angelo Wood Provider Input: 11/07/17 has been admitted for refusing meds, he has been taking them and seems stable Psychiatric Counselors Present: Elsy Latif LCSW Psych Therapist Input: 11/07/17 he can return to [facility] and is appearing motivated, he remains bizarre and is cognitively limited, his niece is payee and POC Group Spec/RT/OT/PARKER Present: Darek Srivastava, OT Group Spec/RT/OT/PARKER Input: 11/07/17 does not attends Elsy Cartagena LCSW November 08, 2017 16:23
== END 2017-11-08 14:05 | DRG 885 ==
LOC: NEDAMB 13:18 → NEDA 11-03 15:15 → H260 11-03 15:30
PROVIDERS: ADMIT Psychiatry & Neurology Psychiatry; ATTEND Psychiatry & Neurology Psychiatry
DX: F25.0 Schizoaffective disorder, bipolar type (principal); I69.320 Aphasia following cerebral infarction; I10 Essential (primary) hypertension; E78.5 Hyperlipidemia, unspecified; L40.9 Psoriasis, unspecified; Z88.0 Allergy status to penicillin; Z79.899 Other long term (current) drug therapy
CPT/HCPCS: 71045; 80048; 80053; 80061; 80307; 83036; 84443; 85025; 93005; 99285

== ENCOUNTER 2017-12-01 13:51 | Emergency (ER) | payer MEDICARE, OTHER ==
[~2017-12-01] VITALS: Ht 177.8 cm; Wt 105.0 kg
[~2017-12-01 13:51] MED LIST changes: -3-IN3MIS; -AMLO10 PO; +ATOR20TA15 PO; -CLOP75 PO; +ECASA81 PO; +Eucerin Cream TOPICAL; -HCTZ25 PO; +LINA290C PO; -LISI20 PO; +METO25TA3 PO; -METO50TA PO; -PRAV80 PO; -PROT40TA PO; +RISP1 PO; -RISP50P IM; -TAMS.4 PO; -WHEEMIS3 XX; -[UNRECOGNIZED DRUG - CODE]; -[UNRECOGNIZED DRUG - CODE] TOP
[2017-12-01 13:57] VITALS: BP 175/113; PULSE 135; RESP 18; TEMP 99.2; O2SAT 100
--- NOTE | 2017-12-01 14:03 | PD ---
Physical Exam Date Seen by Provider: December 01, 2017 Time Seen by Provider: 14:01 Narrative 61-year-old -Stateless male brought in under the [employer] act with history of schizophrenia and refusing to take his medications. Patient is being more aggressive and verbally abusive to staff. He is sent here under the [employer] act for evaluation and treatment. Patient denies any medical complaints. Vital signs show his heart rate to be 139 bpm. Is also mildly hypertensive. Patient is an unreliable historian. He is allergic to penicillin G. Data Data Last Documented VS Vital Signs Date Time Temp Pulse Resp B/P (MAP) Pulse Ox O2 Delivery O2 Flow Rate FiO2 12/01/17 19:30 98.8 78 16 163/86 (111) 98 Room Air Orders Orders Electrocardiogram (12/01/17 14:04) Ckmb (Isoenzyme) Profile (12/01/17 14:04) Complete Blood Count With Diff (12/01/17 14:04) Comprehensive Metabolic Panel (12/01/17 14:04) Magnesium (Mg) (12/01/17 14:04) Prothrombin Time / Inr (Pt) (12/01/17 14:04) Act Partial Throm Time (Ptt) (12/01/17 14:04) Troponin I (12/01/17 14:04) Ecg Monitoring (12/01/17 14:04) Bilateral Bp Monitoring (12/01/17 14:04) Iv Access Insert/Monitor (12/01/17 14:04) Oximetry (12/01/17 14:04) Oxygen Administration (12/01/17 14:04) Sodium Chloride 0.9% Flush (Ns Flush) (12/01/17 14:15) Chest, Pa & Lat (12/01/17 14:04) Thyroid Stimulating Hormone (12/01/17 14:04) Urinalysis - C+S If Indicated (12/01/17 14:04) Psych Screen (12/01/17 14:04) Drug Screen, Random Urine (12/01/17 14:04) Alcohol (Ethanol) (12/01/17 14:04) CKMB (12/01/17 15:20) CKMB% (12/01/17 15:20) Sodium Chlorid 0.9% 500 Ml Inj (Ns 500 M (12/01/17 16:45) Risperidone (Risperdal) (12/01/17 20:45) Labs Laboratory Tests Test 12/01/17 15:20 12/01/17 16:39 White Blood Count 4.6 TH/MM3 Red Blood Count 5.02 MIL/MM3 Hemoglobin 13.5 GM/DL Hematocrit 40.7 % Mean Corpuscular Volume 80.9 FL Mean Corpuscular Hemoglobin 26.9 PG Mean Corpuscular Hemoglobin Concent 33.2 % Red Cell Distribution Width 13.6 % Platelet Count 225 TH/MM3 Mean Platelet Volume 8.6 FL Neutrophils (%) (Auto) 65.4 % Lymphocytes (%) (Auto) 21.2 % Monocytes (%) (Auto) 11.6 % Eosinophils (%) (Auto) 1.1 % Basophils (%) (Auto) 0.7 % Neutrophils # (Auto) 3.0 TH/MM3 Lymphocytes # (Auto) 1.0 TH/MM3 Monocytes # (Auto) 0.5 TH/MM3 Eosinophils # (Auto) 0.0 TH/MM3 Basophils # (Auto) 0.0 TH/MM3 CBC Comment DIFF FINAL Differential Comment Prothrombin Time 10.7 SEC Prothromb Time International Ratio 1.1 RATIO Activated Partial Thromboplast Time 29.2 SEC Blood Urea Nitrogen 7 MG/DL Creatinine 1.06 MG/DL Random Glucose 96 MG/DL Total Protein 8.1 GM/DL Albumin 3.2 GM/DL Calcium Level 9.0 MG/DL Magnesium Level 2.2 MG/DL Alkaline Phosphatase 70 U/L Aspartate Amino Transf (AST/SGOT) 41 U/L Alanine Aminotransferase (ALT/SGPT) 28 U/L Total Bilirubin 0.5 MG/DL Sodium Level 138 MEQ/L Potassium Level 4.1 MEQ/L Chloride Level 101 MEQ/L Carbon Dioxide Level 28.6 MEQ/L Anion Gap 8 MEQ/L Estimat Glomerular Filtration Rate 71 ML/MIN Total Creatine Kinase 454 U/L Creatine Kinase MB 4.2 NG/ML Creatine Kinase MB % 0.9 % Troponin I LESS THAN 0.02 NG/ML Thyroid Stimulating Hormone 3rd Gen 0.788 uIU/ML Ethyl Alcohol Level LESS THAN 3 MG/DL Urine Color LIGHT-YELLOW Urine Turbidity CLEAR Urine pH 7.5 Urine Specific Golden 1.002 Urine Protein NEG mg/dL Urine Glucose (UA) NEG mg/dL Urine Ketones NEG mg/dL Urine Occult Blood NEG Urine Nitrite NEG Urine Bilirubin NEG Urine Urobilinogen LESS THAN 2.0 MG/DL Urine Leukocyte Esterase NEG Urine WBC LESS THAN 1 /hpf Urine Squamous Epithelial Cells <1 /hpf Microscopic Urinalysis Comment CULT NOT INDICATED Urine Opiates Screen NEG Urine Barbiturates Screen NEG Urine Amphetamines Screen NEG Urine Benzodiazepines Screen NEG Urine Cocaine Screen NEG Urine Cannabinoids Screen NEG MDM Medical Record Reviewed: Yes Supervised Visit with GUS: Yes Differential Diagnosis Pritchett act. Schizophrenia. Aggressive behavior. Noncompliance. Hypertension. Tachycardia Narrative Course Recommend patient be moved to a medical bed for further evaluation and treatment of his current hypertension and tachycardia prior to being psychiatrically evaluated. Condition: Stable Darek Vivar December 01, 2017 14:03
[2017-12-01 14:15] VITALS: PULSE 116; RESP 16
[2017-12-01] MEDS ORDERED: SODIUM CHLORIDE 0.9% FLUSH 10 ML FLUSH IVF PRN (14:15)
--- NOTE | 2017-12-01 14:46 | RADRPT ---
EXAM DATE: 12/01/2017 2:24 PM EDT AGE/SEX: 61 years / Male INDICATIONS: Heart palpitations. CLINICAL DATA: This is the patient's initial encounter. Patient reports that signs and symptoms have been present for 1 day and indicates a pain score of 0/10. MEDICAL/SURGICAL HISTORY: Hypertension. None. COMPARISON: No prior [facility] exams available for comparison. FINDINGS: PA and lateral views of the chest demonstrate the lungs to be symmetrically aerated without evidence of mass, infiltrate or effusion. The cardiomediastinal contours are unremarkable. Osseous structures are intact. CONCLUSION: 1. No acute cardiopulmonary disease. Electronically signed by: Bacilio Nguyen MD 12/01/2017 2:45 PM EDT
[2017-12-01 15:56] LABS: BASOPHIL % 0.7 % (0.0-2.0); EOSINOPHIL % 1.1 % (0.0-4.0); HEMATOCRIT 40.7 % (39.0-51.0); HEMOGLOBIN 13.5 GM/DL (13.0-17.0); LYMPH % 21.2 % (9.0-44.0); MEAN CELL VOLUME 80.9 FL (80.0-100.0); MEAN CORPUSCULAR HEMOGLOBIN 26.9 PG (27.0-34.0); MEAN CORPUSCULAR HGB CONC 33.2 % (32.0-36.0); MEAN PLATELET VOLUME 8.6 FL (7.0-11.0); MONO % 11.6 % (0.0-8.0); MONOCYTE # 0.5 TH/MM3 (0-0.9); NEUT % 65.4 % (16.0-70.0); PLATELET COUNT 225 TH/MM3 (150-450); RED BLOOD COUNT 5.02 MIL/MM3 (4.50-5.90); RED CELL DISTRIBUTION WIDTH 13.6 % (11.6-17.2); WHITE BLOOD COUNT 4.6 TH/MM3 (4.0-11.0)
[2017-12-01 15:58] LABS: INTERNATIONAL NORMALIZED RATIO 1.1 RATIO; PROTHROMBIN TIME - PATIENT 10.7 SEC (9.8-11.6)
[2017-12-01 16:10] LABS: ALBUMIN 3.2 GM/DL (3.4-5.0); AST (GOT) 41 U/L (15-37); BICARBONATE 28.6 MEQ/L (21.0-32.0); BLOOD UREA NITROGEN 7 MG/DL (7-18); CHLORIDE 101 MEQ/L (98-107); CREATININE 1.06 MG/DL (0.60-1.30); GLOMERULAR FILTRATION RATE 71 ML/MIN (>89); GLUCOSE,RANDOM 96 MG/DL (74-106); MAGNESIUM 2.2 MG/DL (1.5-2.5); SODIUM (NA) 138 MEQ/L (136-145)
[2017-12-01 16:19] LABS: ALKALINE PHOSPHATASE 70 U/L (45-117); ALT (GPT) 28 U/L (12-78); TOTAL BILIRUBIN ADULT 0.5 MG/DL (0.2-1.0); TOTAL PROTEIN 8.1 GM/DL (6.4-8.2); TROPONIN I LESS THAN 0.02 NG/ML (0.02-0.05)
[2017-12-01 16:45] VITALS: BP 161/96; PULSE 81; RESP 18; O2SAT 99
[2017-12-01] MEDS ORDERED: SODIUM CHLORID 0.9% 500 ML INJ 500 ML IV ONE (16:45)
--- NOTE | 2017-12-01 16:56 | PD ---
HPI Chief Complaint: Psychiatric Symptoms Time Seen by Provider: 15:01 Travel History International Travel<30 days: No Contact w/Intl Traveler<30days: No Traveled to known affect area: No History of Present Illness HPI Patient is a 61-year-old male who comes in as a Pritchett act from his assisted living facility. Per Pritchett act form, patient has been refusing to take any medications for a few days. Patient provides no history. He has no medical complaints and he does not know why he is here. He does have a history of schizophrenia. He denies hearing voices. Denies wanting to hurt himself or anyone else. PFSH Past Medical History Arthritis: Yes Asthma: Yes Autoimmune Disease: No Anxiety: Yes Depression: No Heart Rhythm Problems: No Cancer: No Cardiovascular Problems: Yes High Cholesterol: Yes Chemotherapy: No Chest Pain: No Congestive Heart Failure: No COPD: Yes Cerebrovascular Accident: Yes Diabetes: No Endocrine: Yes Gastrointestinal Disorders: Yes GERD: No Genitourinary: No Headaches: No Hiatal Hernia: No Hypertension: Yes Immune Disorder: No Kidney Stones: No Musculoskeletal: Yes Neurologic: Yes (CVA WITH RESIDUAL LEFT SIDED WEAKNESS AND EXPRESSIVE APHASIA) Psychiatric: Yes Reproductive: No Respiratory: Yes Migraines: No Radiation Therapy: No Renal Failure: No Seizures: Yes Sickle Cell Disease: No Sleep Apnea: No Thyroid Disease: No Ulcer: No Tetanus Vaccination: Unknown Influenza Vaccination: Yes ?: Not Past Surgical History Abdominal Surgery: No AICD: No Arteriovenous Shunt: No Cardiac Surgery: Yes Ear Surgery: No Endocrine Surgery: No Eye Surgery: Yes (cataracts in 1980s / bilateral eyes) Genitourinary Surgery: No Gynecologic Surgery: No Insulin Pump: No Joint Replacement: No Oral Surgery: Yes (wisdom teeth removed ) Pacemaker: No Thoracic Surgery: No Other Surgery: Yes (neck surgery) Social History Alcohol Use: No Tobacco Use: No Substance Use: No Allergies-Medications (Allergen,Severity, Reaction): Coded Allergies: penicillin G (Unverified Allergy, Severe, 12/01/17) Reported Meds & Prescriptions Reported Meds & Active Scripts Active [Eucerin Cream] 120 APPLIC/120 GM Cr 1 Applic TOPICAL BID 15 Days Risperdal (Risperidone) 1 Mg Tab 1.5 Mg PO Q12HR [address] (Aspirin) 81 Mg Tabdr 81 Mg PO DAILY 15 Days Metoprolol Tartrate 25 Mg Tab 12.5 Mg PO Q12HR 15 Days Atorvastatin (Atorvastatin Calcium) 20 Mg Tab 20 Mg PO HS 15 Days Reported Linzess (Linaclotide) 290 Mcg Cap 290 Mcg PO DAILY Review of Systems Except as stated in HPI: all other systems reviewed are Neg General / Constitutional: No: Fever, Chills HENT: No: Headaches Cardiovascular: No: Chest Pain or Discomfort Respiratory: No: Shortness of Breath Gastrointestinal: No: Nausea, Vomiting, Diarrhea Musculoskeletal: No: Myalgias Skin: No Rash Neurologic: No: Weakness, Dizziness Physical Exam Narrative GENERAL: Awake and alert, no acute distress. SKIN: Focused skin assessment warm/dry. No wounds or signs of infection. HEAD: Atraumatic. Normocephalic. EYES: Pupils equal and round. No scleral icterus. ENT: Mucous membranes pink and moist. NECK: Trachea midline. No JVD. CARDIOVASCULAR: Regular rate and rhythm. No murmur appreciated. RESPIRATORY: No accessory muscle use. Clear to auscultation. Breath sounds equal bilaterally. GASTROINTESTINAL: Abdomen soft, non-tender, nondistended. MUSCULOSKELETAL: No obvious deformities. No clubbing. No cyanosis. No edema. NEUROLOGICAL: Awake and alert. No obvious cranial nerve deficits. Motor grossly within normal limits. Normal speech. Data Data Last Documented VS Vital Signs Date Time Temp Pulse Resp B/P (MAP) Pulse Ox O2 Delivery O2 Flow Rate FiO2 12/01/17 16:45 81 18 161/96 (117) 99 Room Air 12/01/17 13:57 99.2 Orders Orders Electrocardiogram (12/01/17 14:04) Ckmb (Isoenzyme) Profile (12/01/17 14:04) Complete Blood Count With Diff (12/01/17 14:04) Comprehensive Metabolic Panel (12/01/17 14:04) Magnesium (Mg) (12/01/17 14:04) Prothrombin Time / Inr (Pt) (12/01/17 14:04) Act Partial Throm Time (Ptt) (12/01/17 14:04) Troponin I (12/01/17 14:04) Ecg Monitoring (12/01/17 14:04) Bilateral Bp Monitoring (12/01/17 14:04) Iv Access Insert/Monitor (12/01/17 14:04) Oximetry (12/01/17 14:04) Oxygen Administration (12/01/17 14:04) Sodium Chloride 0.9% Flush (Ns Flush) (12/01/17 14:15) Chest, Pa & Lat (12/01/17 14:04) Thyroid Stimulating Hormone (12/01/17 14:04) Urinalysis - C+S If Indicated (12/01/17 14:04) Psych Screen (12/01/17 14:04) Drug Screen, Random Urine (12/01/17 14:04) Alcohol (Ethanol) (12/01/17 14:04) CKMB (12/01/17 15:20) CKMB% (12/01/17 15:20) Sodium Chlorid 0.9% 500 Ml Inj (Ns 500 M (12/01/17 16:45) Labs Laboratory Tests Test 12/01/17 15:20 12/01/17 16:39 White Blood Count 4.6 TH/MM3 Red Blood Count 5.02 MIL/MM3 Hemoglobin 13.5 GM/DL Hematocrit 40.7 % Mean Corpuscular Volume 80.9 FL Mean Corpuscular Hemoglobin 26.9 PG Mean Corpuscular Hemoglobin Concent 33.2 % Red Cell Distribution Width 13.6 % Platelet Count 225 TH/MM3 Mean Platelet Volume 8.6 FL Neutrophils (%) (Auto) 65.4 % Lymphocytes (%) (Auto) 21.2 % Monocytes (%) (Auto) 11.6 % Eosinophils (%) (Auto) 1.1 % Basophils (%) (Auto) 0.7 % Neutrophils # (Auto) 3.0 TH/MM3 Lymphocytes # (Auto) 1.0 TH/MM3 Monocytes # (Auto) 0.5 TH/MM3 Eosinophils # (Auto) 0.0 TH/MM3 Basophils # (Auto) 0.0 TH/MM3 CBC Comment DIFF FINAL Differential Comment Prothrombin Time 10.7 SEC Prothromb Time International Ratio 1.1 RATIO Activated Partial Thromboplast Time 29.2 SEC Blood Urea Nitrogen 7 MG/DL Creatinine 1.06 MG/DL Random Glucose 96 MG/DL Total Protein 8.1 GM/DL Albumin 3.2 GM/DL Calcium Level 9.0 MG/DL Magnesium Level 2.2 MG/DL Alkaline Phosphatase 70 U/L Aspartate Amino Transf (AST/SGOT) 41 U/L Alanine Aminotransferase (ALT/SGPT) 28 U/L Total Bilirubin 0.5 MG/DL Sodium Level 138 MEQ/L Potassium Level 4.1 MEQ/L Chloride Level 101 MEQ/L Carbon Dioxide Level 28.6 MEQ/L Anion Gap 8 MEQ/L Estimat Glomerular Filtration Rate 71 ML/MIN Total Creatine Kinase 454 U/L Creatine Kinase MB 4.2 NG/ML Creatine Kinase MB % 0.9 % Troponin I LESS THAN 0.02 NG/ML Thyroid Stimulating Hormone 3rd Gen 0.788 uIU/ML Ethyl Alcohol Level LESS THAN 3 MG/DL MDM Medical Decision Making Medical Screen Exam Complete: Yes Emergency Medical Condition: Yes Medical Record Reviewed: Yes Interpretation(s) ECG shows normal sinus rhythm at a rate 87. No ST elevation or depression, normal intervals Differential Diagnosis Psychosis versus schizophrenia versus hallucinations versus dehydration Narrative Course Patient is a 61-year-old male who comes in under Pritchett act. He has no medical complaints at this time. On arrival he was noted to be tachycardic, however this improved with no interventions. Labs show no acute abnormalities. He will be medically cleared for psychiatric evaluation. Diagnosis Primary Impression: Schizoaffective disorder Qualified Codes: F25.0 - Schizoaffective disorder, bipolar type Condition: Stable Noreen Mayer MD December 01, 2017 16:56
[2017-12-01 16:59] LABS: BILIRUBIN, URINE NEG (NEG); BLOOD, URINE NEG (NEG); GLUCOSE,URINE NEG (NEG); KETONE, URINE NEG (NEG); NITRITE,URINE NEG (NEG); PH, URINE 7.5 (5.0-8.5); SQUAMOUS EPITHELIAL CELL URINE <1 /hpf (0-5); URINE COLOR LIGHT-YELLOW (YELLW/STRAW); URINE LEUKOCYTE ESTERASE NEG (NEG)
[2017-12-01 19:30] VITALS: BP 163/86; PULSE 78; RESP 16; TEMP 98.8; O2SAT 98
[2017-12-01] MEDS ORDERED: risperiDONE 1 MG TAB PO ONE (20:45)
[2017-12-02 02:27] VITALS: BP 148/94; PULSE 102; RESP 20; TEMP 98; O2SAT 100
[2017-12-02 06:33] VITALS: BP 173/90; PULSE 92; RESP 17; TEMP 98.4; O2SAT 97
[2017-12-02] MEDS ORDERED: [UNRECOGNIZED DRUG - OTHER] PO SCH (10:15)
[2017-12-02] MEDS ORDERED: LINACLOTIDE 290 MCG PO SCH (10:15)
[2017-12-02] MEDS ORDERED: risperiDONE 1 MG TAB PO ONE (10:15)
[2017-12-02] MEDS ORDERED: ASPIRIN EC 81 MG TABEC PO SCH (10:15)
[2017-12-02] MEDS ORDERED: METOPROLOL TARTRATE 25 MG TAB PO SCH (10:15)
[2017-12-02] MEDS ORDERED: PILL SPLITTER OTHER PRN (10:30)
--- NOTE | 2017-12-02 11:14 | PD ---
History of Present Illness Chief Complaint: Psychiatric Symptoms Time Seen by Provider: 10:50 Travel History International Travel<30 Days: No Contact w/Intl Traveler<30days: No Known affected area: No Legal Status Legal Status: Involuntary Pritchett Act Signed By: Yarely Act Comment: Psychologist Marivel History of Present Illness: History of Present Illness HPI The patient is 61-year-old, -Romanian, single male, resident of [facility] , with history of hypertension, CVA, residual neurological symptoms, expressive aphasia, psychiatric history of schizoaffective disorder, bipolar type, multiple psychiatric hospitalizations, who presents to the ED for evaluation of Pritchett act initiated by psychologist at [facility] after apparently non compliance with all prescribed medications for the past week, " with increasing anger and confusion. This patient was recently hospitalized at [facility] on November 03 and subsequently discharged on November 08 for similar complaint. The patient has been monitored here in J pod over extended period of time. Nurses report that patient has had no behavioral dysregulation. He accepted his nighttime medication last night and once again this morning. Patient has slept well last night. Patient is seen. He is calm and cooperative. Difficult to understand due to his aphasia. He denies that he is hearing any voices. He denies suicidal or homicidal ideation, intent or plan. He states that he will continue to take his medication. There is no evidence of any monster or hypomania. PFSH Past Medical History Arthritis: Yes Asthma: Yes Autoimmune Disease: No Anxiety: Yes Depression: No Heart Rhythm Problems: No Cancer: No Cardiovascular Problems: Yes High Cholesterol: Yes Chemotherapy: No Chest Pain: No Congestive Heart Failure: No COPD: Yes Cerebrovascular Accident: Yes Diabetes: No Endocrine: Yes Gastrointestinal Disorders: Yes GERD: No Genitourinary: No Headaches: No Hiatal Hernia: No Hypertension: Yes Immune Disorder: No Kidney Stones: No Musculoskeletal: Yes Neurologic: Yes (CVA WITH RESIDUAL LEFT SIDED WEAKNESS AND EXPRESSIVE APHASIA) Psychiatric: Yes Reproductive: No Respiratory: Yes Migraines: No Radiation Therapy: No Renal Failure: No Seizures: Yes Sickle Cell Disease: No Sleep Apnea: No Thyroid Disease: No Ulcer: No Tetanus Vaccination: Unknown Influenza Vaccination: Yes ?: Not Past Surgical History Abdominal Surgery: No AICD: No Arteriovenous Shunt: No Cardiac Surgery: Yes Ear Surgery: No Endocrine Surgery: No Eye Surgery: Yes (cataracts in 1980s / bilateral eyes) Genitourinary Surgery: No Gynecologic Surgery: No Insulin Pump: No Joint Replacement: No Oral Surgery: Yes (wisdom teeth removed ) Pacemaker: No Thoracic Surgery: No Other Surgery: Yes (neck surgery) Psychiatric History Psychiatric History Hx Psychiatric Treatment: History of schizoaffective disorder, bipolar type. Multiple psychiatric hospitalizations. History of Inpatient Treatment: Yes ([facility] October 2017) Guns or firearms in home: No Social History Patient is a resident of [facility]. On disability. Hx Alcohol Use: No Hx Tobacco Use: No Hx Substance Use: No Hx of Substance Use Treatment: No Allergies-Medications (Allergen,Severity, Reaction): Coded Allergies: penicillin G (Unverified Allergy, Severe, 12/01/17) Reported Meds & Prescriptions Reported Meds & Active Scripts Active [Eucerin Cream] 120 APPLIC/120 GM Cr 1 Applic TOPICAL BID 15 Days Risperdal (Risperidone) 1 Mg Tab 1.5 Mg PO Q12HR [address] (Aspirin) 81 Mg Tabdr 81 Mg PO DAILY 15 Days Metoprolol Tartrate 25 Mg Tab 12.5 Mg PO Q12HR 15 Days Atorvastatin (Atorvastatin Calcium) 20 Mg Tab 20 Mg PO HS 15 Days Reported Linzess (Linaclotide) 290 Mcg Cap 290 Mcg PO DAILY Review of Systems ROS Limitations: Poor Historian Psychiatric: DENIES: Anxiety, Confusion, Mood changes, Depression, Hallucinations, Agitation, Suicidal Ideation, Homicidal Ideation, Delusions Mental Status Examination Appearance: Appropriate (In paper scrubs) Consciousness: Alert Orientation: Person, Place, Date/Time (Partial), Situation (No seizures in the hospital) Motor Activity: Normal gait Speech: Speech impediment, Other (Difficult to understand) Language: Echolalia Fund of Knowledge: Inadequate Attention and Concentration: Easily Distracted Memory: Unremarkable (Unable to test) Mood: Appropriate Affect: Appropriate Thought Process & Associations: Intact, Logical, Goal directed (Denies any hallucinations) Thought Content: Appropriate Hallucination Type: None Delusion Type: None Suicidal Ideation: No Suicidal Plan: No Suicidal Intention: No Homicidal Ideation: No Homicidal Plan: No Homicidal Intention: No Insight: Poor Judgment: Poor MDM Medical Decision Making Medical Record Reviewed: Yes Assessment/Plan The patient is 61-year-old, -Romanian, single male, resident of [facility] , with history of hypertension, CVA, residual neurological symptoms, expressive aphasia, psychiatric history of schizoaffective disorder, bipolar type, multiple psychiatric hospitalizations, who presents to the ED for evaluation of Pritchett act initiated by psychologist at [facility] after apparently non compliance with all prescribed medications for the past week, " with increasing anger and confusion. This patient was recently hospitalized at [facility] on November 03 and subsequently discharged on November 08 for similar complaint. The patient was monitored in J pod and his medications were ordered. He accepted nighttime medication and this morning he was medication compliant as well. I see no evidence of any monster or hypomania. Patient denies any hallucinations and does not appear to be psychotic. Patient appears to be at baseline. He no longer meets criteria to remain under the Pritchett act and will not benefit from inpatient psychiatric admission. I have asked nursing staff to please contact the [facility] so that patient can be discharged. Pritchett act as lifted. No changes to current psychiatric medications. Orders Orders Electrocardiogram (12/01/17 14:04) Ckmb (Isoenzyme) Profile (12/01/17 14:04) Complete Blood Count With Diff (12/01/17 14:04) Comprehensive Metabolic Panel (12/01/17 14:04) Magnesium (Mg) (12/01/17 14:04) Prothrombin Time / Inr (Pt) (12/01/17 14:04) Act Partial Throm Time (Ptt) (12/01/17 14:04) Troponin I (12/01/17 14:04) Ecg Monitoring (12/01/17 14:04) Bilateral Bp Monitoring (12/01/17 14:04) Iv Access Insert/Monitor (12/01/17 14:04) Oximetry (12/01/17 14:04) Oxygen Administration (12/01/17 14:04) Sodium Chloride 0.9% Flush (Ns Flush) (12/01/17 14:15) Chest, Pa & Lat (12/01/17 14:04) Thyroid Stimulating Hormone (12/01/17 14:04) Urinalysis - C+S If Indicated (12/01/17 14:04) Psych Screen (12/01/17 14:04) Drug Screen, Random Urine (12/01/17 14:04) Alcohol (Ethanol) (12/01/17 14:04) CKMB (12/01/17 15:20) CKMB% (12/01/17 15:20) Sodium Chlorid 0.9% 500 Ml Inj (Ns 500 M (12/01/17 16:45) Risperidone (Risperdal) (12/01/17 20:45) Diet Regular Basic (12/02/17 Breakfast) Aspirin Ec (Ecotrin Ec) (12/02/17 10:15) Metoprolol Tartrate (Lopressor) (12/02/17 10:15) Patient Own Medication (12/02/17 10:15) Risperidone (Risperdal) (12/02/17 10:15) Pill Splitter (Pill Splitter) (12/02/17 10:30) Patient Own Medication (12/03/17 09:00) Diet Regular Basic (12/02/17 Lunch) Results Vital Signs Date Time Temp Pulse Resp B/P (MAP) Pulse Ox O2 Delivery O2 Flow Rate FiO2 12/02/17 06:33 98.4 92 17 173/90 (117) 97 Room Air 12/02/17 02:27 98.0 102 20 148/94 (112) 100 Room Air 12/01/17 19:30 98.8 78 16 163/86 (111) 98 Room Air 12/01/17 16:45 81 18 161/96 (117) 99 Room Air 12/01/17 14:15 116 16 Room Air 12/01/17 13:57 99.2 135 18 175/113 (133) 100 Laboratory Tests Test 12/01/17 15:20 12/01/17 16:39 White Blood Count 4.6 Red Blood Count 5.02 Hemoglobin 13.5 Hematocrit 40.7 Mean Corpuscular Volume 80.9 Mean Corpuscular Hemoglobin 26.9 Mean Corpuscular Hemoglobin Concent 33.2 Red Cell Distribution Width 13.6 Platelet Count 225 Mean Platelet Volume 8.6 Neutrophils (%) (Auto) 65.4 Lymphocytes (%) (Auto) 21.2 Monocytes (%) (Auto) 11.6 Eosinophils (%) (Auto) 1.1 Basophils (%) (Auto) 0.7 Neutrophils # (Auto) 3.0 Lymphocytes # (Auto) 1.0 Monocytes # (Auto) 0.5 Eosinophils # (Auto) 0.0 Basophils # (Auto) 0.0 CBC Comment DIFF FINAL Differential Comment Prothrombin Time 10.7 Prothromb Time International Ratio 1.1 Activated Partial Thromboplast Time 29.2 Blood Urea Nitrogen 7 Creatinine 1.06 Random Glucose 96 Total Protein 8.1 Albumin 3.2 Calcium Level 9.0 Magnesium Level 2.2 Alkaline Phosphatase 70 Aspartate Amino Transf (AST/SGOT) 41 Alanine Aminotransferase (ALT/SGPT) 28 Total Bilirubin 0.5 Sodium Level 138 Potassium Level 4.1 Chloride Level 101 Carbon Dioxide Level 28.6 Anion Gap 8 Estimat Glomerular Filtration Rate 71 Total Creatine Kinase 454 Creatine Kinase MB 4.2 Creatine Kinase MB % 0.9 Troponin I LESS THAN 0.02 Thyroid Stimulating Hormone 3rd Gen 0.788 Ethyl Alcohol Level LESS THAN 3 Urine Color LIGHT-YELLOW Urine Turbidity CLEAR Urine pH 7.5 Urine Specific [place] 1.002 Urine Protein NEG Urine Glucose (UA) NEG Urine Ketones NEG Urine Occult Blood NEG Urine Nitrite NEG Urine Bilirubin NEG Urine Urobilinogen LESS THAN 2.0 Urine Leukocyte Esterase NEG Urine WBC LESS THAN 1 Urine Squamous Epithelial Cells <1 Microscopic Urinalysis Comment CULT NOT INDICATED Urine Opiates Screen NEG Urine Barbiturates Screen NEG Urine Amphetamines Screen NEG Urine Benzodiazepines Screen NEG Urine Cocaine Screen NEG Urine Cannabinoids Screen NEG Diagnosis Primary Impression: Schizoaffective disorder Psychiatrically Cleared: Yes Med/ Other Pt Specific Info: No Change to Meds Disposition: 01 DISCHARGE HOME Condition: Stable Problem Qualifiers Primary Impression: Schizoaffective disorder Qualified Codes: F25.0 - Schizoaffective disorder, bipolar type Paula Maravilla [facility] December 02, 2017 11:13
--- NOTE | 2017-12-02 12:43 | PD ---
Physical Exam Date Seen by Provider: December 02, 2017 Narrative 61-year-old male presents to the emergency department as a Pirtchett act for suicidal ideations. He was medically cleared by the previous provider to see psych. Psych evaluated the patient. Medications for requested for this patient as he likely will not have access to these medications once he leaves the hospital. Will refill Metoprolol, Linzess, and atorvastatin. Patient will go home with his niece. Data Data Last Documented VS Vital Signs Date Time Temp Pulse Resp B/P (MAP) Pulse Ox O2 Delivery O2 Flow Rate FiO2 12/02/17 15:59 12/02/17 15:10 100 18 97 12/02/17 06:33 98.4 Room Air Orders Orders Electrocardiogram (12/01/17 14:04) Ckmb (Isoenzyme) Profile (12/01/17 14:04) Complete Blood Count With Diff (12/01/17 14:04) Comprehensive Metabolic Panel (12/01/17 14:04) Magnesium (Mg) (12/01/17 14:04) Prothrombin Time / Inr (Pt) (12/01/17 14:04) Act Partial Throm Time (Ptt) (12/01/17 14:04) Troponin I (12/01/17 14:04) Ecg Monitoring (12/01/17 14:04) Bilateral Bp Monitoring (12/01/17 14:04) Iv Access Insert/Monitor (12/01/17 14:04) Oximetry (12/01/17 14:04) Oxygen Administration (12/01/17 14:04) Sodium Chloride 0.9% Flush (Ns Flush) (12/01/17 14:15) Chest, Pa & Lat (12/01/17 14:04) Thyroid Stimulating Hormone (12/01/17 14:04) Urinalysis - C+S If Indicated (12/01/17 14:04) Psych Screen (12/01/17 14:04) Drug Screen, Random Urine (12/01/17 14:04) Alcohol (Ethanol) (12/01/17 14:04) CKMB (12/01/17 15:20) CKMB% (12/01/17 15:20) Sodium Chlorid 0.9% 500 Ml Inj (Ns 500 M (12/01/17 16:45) Risperidone (Risperdal) (12/01/17 20:45) Diet Regular Basic (12/02/17 Breakfast) Aspirin Ec (Ecotrin Ec) (12/02/17 10:15) Metoprolol Tartrate (Lopressor) (12/02/17 10:15) Patient Own Medication (12/02/17 10:15) Risperidone (Risperdal) (12/02/17 10:15) Pill Splitter (Pill Splitter) (12/02/17 10:30) Patient Own Medication (12/03/17 09:00) Diet Regular Basic (12/02/17 Lunch) Ed Discharge Order (12/02/17 12:44) Labs Laboratory Tests Test 12/01/17 15:20 12/01/17 16:39 White Blood Count 4.6 TH/MM3 Red Blood Count 5.02 MIL/MM3 Hemoglobin 13.5 GM/DL Hematocrit 40.7 % Mean Corpuscular Volume 80.9 FL Mean Corpuscular Hemoglobin 26.9 PG Mean Corpuscular Hemoglobin Concent 33.2 % Red Cell Distribution Width 13.6 % Platelet Count 225 TH/MM3 Mean Platelet Volume 8.6 FL Neutrophils (%) (Auto) 65.4 % Lymphocytes (%) (Auto) 21.2 % Monocytes (%) (Auto) 11.6 % Eosinophils (%) (Auto) 1.1 % Basophils (%) (Auto) 0.7 % Neutrophils # (Auto) 3.0 TH/MM3 Lymphocytes # (Auto) 1.0 TH/MM3 Monocytes # (Auto) 0.5 TH/MM3 Eosinophils # (Auto) 0.0 TH/MM3 Basophils # (Auto) 0.0 TH/MM3 CBC Comment DIFF FINAL Differential Comment Prothrombin Time 10.7 SEC Prothromb Time International Ratio 1.1 RATIO Activated Partial Thromboplast Time 29.2 SEC Blood Urea Nitrogen 7 MG/DL Creatinine 1.06 MG/DL Random Glucose 96 MG/DL Total Protein 8.1 GM/DL Albumin 3.2 GM/DL Calcium Level 9.0 MG/DL Magnesium Level 2.2 MG/DL Alkaline Phosphatase 70 U/L Aspartate Amino Transf (AST/SGOT) 41 U/L Alanine Aminotransferase (ALT/SGPT) 28 U/L Total Bilirubin 0.5 MG/DL Sodium Level 138 MEQ/L Potassium Level 4.1 MEQ/L Chloride Level 101 MEQ/L Carbon Dioxide Level 28.6 MEQ/L Anion Gap 8 MEQ/L Estimat Glomerular Filtration Rate 71 ML/MIN Total Creatine Kinase 454 U/L Creatine Kinase MB 4.2 NG/ML Creatine Kinase MB % 0.9 % Troponin I LESS THAN 0.02 NG/ML Thyroid Stimulating Hormone 3rd Gen 0.788 uIU/ML Ethyl Alcohol Level LESS THAN 3 MG/DL Urine Color LIGHT-YELLOW Urine Turbidity CLEAR Urine pH 7.5 Urine Specific [place] 1.002 Urine Protein NEG mg/dL Urine Glucose (UA) NEG mg/dL Urine Ketones NEG mg/dL Urine Occult Blood NEG Urine Nitrite NEG Urine Bilirubin NEG Urine Urobilinogen LESS THAN 2.0 MG/DL Urine Leukocyte Esterase NEG Urine WBC LESS THAN 1 /hpf Urine Squamous Epithelial Cells <1 /hpf Microscopic Urinalysis Comment CULT NOT INDICATED Urine Opiates Screen NEG Urine Barbiturates Screen NEG Urine Amphetamines Screen NEG Urine Benzodiazepines Screen NEG Urine Cocaine Screen NEG Urine Cannabinoids Screen NEG MDM Supervised Visit with GUS: No Diagnosis Primary Impression: Schizoaffective disorder Qualified Codes: F25.0 - Schizoaffective disorder, bipolar type Scripts Risperidone (Risperdal) 2 Mg Tab 2 MG PO Q12HR for hallucinations for 14 Days, #30 TAB 0 Refills Prov: MaravillaPaulajefferson Cormiera Sanchez [employer] 12/02/17 Linaclotide (Linzess) 290 Mcg Cap 290 MCG PO DAILY for 14 Days, #14 CAP 0 Refills Prov: Marcus Lopez MD 12/02/17 Atorvastatin (Atorvastatin) 20 Mg Tab 20 MG PO HS for Cholesterol Management for 14 Days, #14 TAB 0 Refills Prov: Marcus Lopez MD 12/02/17 Metoprolol Tartrate (Metoprolol Tartrate) 25 Mg Tab 12.5 MG PO BID for 14 Days, #14 TAB 0 Refills Prov: Marcus Lopez MD 12/02/17 Disposition: 01 DISCHARGE HOME Condition: Stable Shellie Roberts December 02, 2017 12:43
[2017-12-02] MEDS ORDERED: METO25TA3 PO (13:47)
[2017-12-02] MEDS ORDERED: ATOR20TA15 PO (13:47)
[2017-12-02] MEDS ORDERED: LINA290C PO (13:47)
[2017-12-02] MEDS ORDERED: RISP2TAB37 PO (14:30)
[2017-12-02 15:10] VITALS: BP 157/101; PULSE 100; RESP 18; O2SAT 97
--- NOTE | 2017-12-02 15:15 | EKG ---
Date Performed: 12/01/2017 Time Performed: 15:55:28 PTAGE: 61 years EKG: Sinus rhythm BORDERLINE LEFT AXIS DEVIATION BORDERLINE ECG Compared to PREVIOUS TRACING , no significant change. PREVIOUS TRACIN11/06/2017 13.07 DOCTOR: Ari Edmondson Interpretating Date/Time 12/02/2017 15:14:06
[2017-12-03] MEDS ORDERED: LINACLOTIDE 290 MCG PO SCH (09:00)
[2017-12-03] MEDS ORDERED: [UNRECOGNIZED DRUG - OTHER] PO SCH (09:00)
== END 2017-12-02 16:04 | disposition home or self-care (01) ==
LOC: NEPD 13:51 → NEPJ 12-02 16:04
DX: F25.0 Schizoaffective disorder, bipolar type (principal); E78.00 Pure hypercholesterolemia, unspecified; I10 Essential (primary) hypertension; R00.0 Tachycardia, unspecified; Z79.899 Other long term (current) drug therapy; Z86.73 Personal history of transient ischemic attack (TIA), and cerebral infarction without residual deficits
CPT/HCPCS: 71046; 80053; 80307; 81001; 82550; 82552; 83735; 84443; 84484; 85025; 85610; 85730; 93005; 96360; 96361; 99285; J7040